=== PATIENT | male | born 1945 | race Caucasian/White ===

== ENCOUNTER 2017-03-22 14:46 | Inpatient (IN) | payer MEDICARE ==
[~2017-03-22] VITALS: Ht 180.3 cm; Wt 69.9 kg
[~2017-03-22 14:46] MED LIST: BIOTUSSIN PO; CHILD ASA LS81 MG PO; DIGOXIN0.125 MG PO; DILTIAZEM CD120 MG PO; DULERA1 AE1 IN; FINASTERIDE5 MG PO; K-DUR/KLOR-CON10 MEQ PO; LASIX 40 MG40 MG/TAB PO; LEVAQUIN750 MG PO; LISINOPRIL2.5 MG PO; LOPRESSOR 550 MG/TAB PO; PEG 3350 PO; PREDNISONE10 MG PO; PREDNISONE50 MG PO; PROAIR HFA IN; STOOL SOFTEN240 MG PO; SYMBICORT1 AE1 IN; TAMSULOSIN0.4 MG PO
[2017-03-22 15:00] VITALS: BP 90/50
[2017-03-22 15:53] LABS: HEMATOCRIT 47.3 % (39.0-50.0); HEMOGLOBIN 16.2 g/dl (14.0-18.0); IMMATURE GRANULOCYTES 0.3 % (0.0-1.0); MEAN CELL VOLUME 101.7 fL CALC (80.0-100.0); MEAN CORPUSCULAR HGB 34.8 pG CALC (26.0-32.0); MEAN CORPUSCULAR HGB CONC 34.2 g/L CALC (32.0-36.0); NEUT# 4.27 thou/uL (1.82-7.42); RED BLOOD COUNT 4.65 mill/uL (4.70-6.10); RED CELL DISTRI WIDTH 14.1 % (11.5-15.5)
[2017-03-22] MEDS ORDERED: CARVEDILOL3.125 MG PO (15:55)
[2017-03-22] MEDS ORDERED: ENTRESTO 24-261 TAB PO (15:57)
[2017-03-22] MEDS ORDERED: FUROSEMIDE40 MG PO (15:59)
[2017-03-22] MEDS ORDERED: TYLENOL 500MG TAB PO (16:08)
[2017-03-22 16:09] LABS: ALBUMIN 3.4 g/dL (3.2-5.0); ALKALINE PHOSPHATASE 77 u/l (38-126); ANION GAP 12 (6-22 (CALC)); BUN 21 mg/dL (8-23); BUN/CREATININE RATIO 30 (12-20 (CALC)); CARBON DIOXIDE 35 mmol/l (22-30); CHLORIDE 95 mmol/l (95-108); CREATININE 0.7 mg/dL (0.7-1.3); GFR > 60 ML/MIN (>=60 (CALC)); GFR FOR AFR.AMER. > 60 ML/MIN (>=60 (CALC)); GLUCOSE 101 mg/dL (82-115); POTASSIUM 4.3 mmol/l (3.5-5.1); SGOT/AST 14 u/l (19-48); SGPT/ALT 26 u/l (11-66); SODIUM 137 mmol/l (137-146); TOTAL PROTEIN 6.3 g/dL (6.3-8.2)
[2017-03-22 16:10] LABS: ACT PARTIAL THROMBO TIME 47.5 SECONDS (20.0-32.5); INTERNATIONAL NORMALIZED RATIO 2.2 RATIO (0.7-1.3); PROTHROMBIN TIME 25.7 SECONDS (9.0-12.5)
[2017-03-22 19:00] VITALS: BP 86/52
[2017-03-22 22:00] VITALS: BP 83/55
[2017-03-22 22:59] VITALS: BP 83/55
[2017-03-22 23:40] VITALS: BP 106/66
[2017-03-23] VITALS (13 sets, daily range): BP systolic 93–113; BP diastolic 57–68
[2017-03-23 04:10] LABS: HEMATOCRIT 42.1 % (39.0-50.0); HEMOGLOBIN 13.8 g/dl (14.0-18.0); IMMATURE GRANULOCYTES 0.2 % (0.0-1.0); MEAN CELL VOLUME 99.1 fL CALC (80.0-100.0); MEAN CORPUSCULAR HGB 32.5 pG CALC (26.0-32.0); MEAN CORPUSCULAR HGB CONC 32.8 g/L CALC (32.0-36.0); NEUT# 2.41 thou/uL (1.82-7.42); RED BLOOD COUNT 4.25 mill/uL (4.70-6.10); RED CELL DISTRI WIDTH 13.6 % (11.5-15.5)
[2017-03-23 04:28] LABS: INTERNATIONAL NORMALIZED RATIO 1.5 RATIO (0.7-1.3); PROTHROMBIN TIME 17.3 SECONDS (9.0-12.5)
[2017-03-23 05:00] LABS: ANION GAP 9 (6-22 (CALC)); BUN 15 mg/dL (8-23); BUN/CREATININE RATIO 26 (12-20 (CALC)); CALCIUM 8.8 mg/dL (8.4-10.2); CARBON DIOXIDE 35 mmol/l (22-30); CHLORIDE 97 mmol/l (95-108); CREATININE 0.6 mg/dL (0.7-1.3); GFR > 60 ML/MIN (>=60 (CALC)); GFR FOR AFR.AMER. > 60 ML/MIN (>=60 (CALC)); GLUCOSE 80 mg/dL (82-115); MAGNESIUM 1.9 mg/dL (1.6-2.3); POTASSIUM 4.3 mmol/l (3.5-5.1); SODIUM 137 mmol/l (137-146)
[2017-03-23 06:38] LABS: INTERNATIONAL NORMALIZED RATIO 1.6 RATIO (0.7-1.3); PROTHROMBIN TIME 18.1 SECONDS (9.0-12.5)
[2017-03-24 00:19] VITALS: BP 99/62
[2017-03-24 04:15] VITALS: BP 91/58
[2017-03-24 08:05] VITALS: BP 97/61
[2017-03-24 08:26] VITALS: BP 97/61
[2017-03-24] MEDS ORDERED: DIGOXIN0.125 MG PO (11:06)
[2017-03-24] MEDS ORDERED: ZITHROMAX250 MG PO (11:25)
[2017-03-24] MEDS ORDERED: IPRATROPIU0.5 MG/3 M IN (11:25)
[2017-03-24] MEDS ORDERED: PREDNISONE10 MG PO (11:25)
== END 2017-03-24 16:35 | disposition home or self-care (01) | DRG 813 ==
LOC: MS2 14:46
PROVIDERS: Nurse Practitioner Family; Surgery; ADMIT Internal Medicine; ATTEND Internal Medicine
PROC: 30233K1 Transfusion of Nonautologous Frozen Plasma into Peripheral Vein, Percutaneous Approach (ICD-10-PCS; principal; 2017-03-22)
PROC: 30233K1 Transfusion of Nonautologous Frozen Plasma into Peripheral Vein, Percutaneous Approach (ICD-10-PCS; 2017-03-23)
PROC: 0DBH8ZX Excision of Cecum, Via Natural or Artificial Opening Endoscopic, Diagnostic (ICD-10-PCS; 2017-03-23)
PROC: 0DBL8ZX Excision of Transverse Colon, Via Natural or Artificial Opening Endoscopic, Diagnostic (ICD-10-PCS; 2017-03-23)
DX: D68.2 Hereditary deficiency of other clotting factors (principal); J96.10 Chronic respiratory failure, unspecified whether with hypoxia or hypercapnia; I95.9 Hypotension, unspecified; I42.0 Dilated cardiomyopathy; I50.22 Chronic systolic (congestive) heart failure; J43.9 Emphysema, unspecified; Z99.81 Dependence on supplemental oxygen; D12.0 Benign neoplasm of cecum; D12.3 Benign neoplasm of transverse colon; I48.2 Chronic atrial fibrillation; R63.4 Abnormal weight loss; E11.9 Type 2 diabetes mellitus without complications; I25.10 Atherosclerotic heart disease of native coronary artery without angina pectoris; N40.0 Benign prostatic hyperplasia without lower urinary tract symptoms; R97.20 Elevated prostate specific antigen [PSA]; F17.210 Nicotine dependence, cigarettes, uncomplicated; D50.0 Iron deficiency anemia secondary to blood loss (chronic); Z79.51 Long term (current) use of inhaled steroids; Z86.010 Personal history of colon polyps

== ENCOUNTER 2018-03-06 11:00 | Emergency (ER) | payer MEDICARE ==
[~2018-03-06] VITALS: Ht 180.3 cm; Wt 70.0 kg
[~2018-03-06 11:00] MED LIST changes: +CARVEDILOL3.125 MG PO; +ENTRESTO 24-261 TAB PO; +FUROSEMIDE40 MG PO; +IPRATROPIU0.5 MG/3 M IN; +TYLENOL 500MG TAB PO; +ZITHROMAX250 MG PO
[2018-03-06 12:03] LABS: HEMATOCRIT 42.7 % (39.0-50.0); HEMOGLOBIN 15.4 g/dl (14.0-18.0); IMMATURE GRANULOCYTES 0.1 % (0.0-5.0); MEAN CELL VOLUME 108.7 fL CALC (80.0-100.0); MEAN CORPUSCULAR HGB 39.2 pG CALC (26.0-32.0); MEAN CORPUSCULAR HGB CONC 36.1 g/L CALC (32.0-36.0); NEUT# 4.96 thou/uL (1.82-7.42); RED BLOOD COUNT 3.93 mill/uL (4.70-6.10); RED CELL DISTRI WIDTH 15.6 % (11.5-15.5)
[2018-03-06 12:16] LABS: BUN 25 mg/dL (8-23); BUN/CREATININE RATIO 34 (12-20 (CALC)); CHLORIDE 94 mmol/l (95-108); CREATININE 0.7 mg/dL (0.7-1.3); GFR > 60 ML/MIN (>=60 (CALC)); GFR FOR AFR.AMER. > 60 ML/MIN (>=60 (CALC)); POTASSIUM 3.9 mmol/l (3.5-5.1); SODIUM 143 mmol/l (137-146)
[2018-03-06 12:25] LABS: ANION GAP 9 (6-22 (CALC))
[2018-03-06 12:30] LABS: CARBON DIOXIDE 44 mmol/l (22-30)
[2018-03-06] MEDS ORDERED: PREDNISONE50 MG PO (13:39)
[2018-03-06] MEDS ORDERED: AUGMENTIN875TAB PO (13:39)
[2018-03-06] MEDS ORDERED: ZPAK PO (13:39)
[2018-03-06 13:51] VITALS: BP 95/60
== END 2018-03-06 14:09 | disposition home or self-care (01) ==
LOC: ED 11:00
PROVIDERS: Family Medicine
DX: J44.1 Chronic obstructive pulmonary disease with (acute) exacerbation (principal); J18.9 Pneumonia, unspecified organism; J44.0 Chronic obstructive pulmonary disease with (acute) lower respiratory infection; D68.2 Hereditary deficiency of other clotting factors; F17.210 Nicotine dependence, cigarettes, uncomplicated

== ENCOUNTER 2018-03-08 10:46 | Inpatient (IN) | payer MEDICARE ==
[~2018-03-08] VITALS: Ht 180.3 cm; Wt 85.3 kg
[~2018-03-08 10:46] MED LIST changes: +AUGMENTIN875TAB PO; +ZPAK PO
--- NOTE | 2018-03-08 10:51 | NUR ---
PATIENT TO ROOM VIA WHEELCHAIR AND PHYSICIAN AT BEDSIDE FOR EVAL
--- NOTE | 2018-03-08 11:16 | NUR ---
NOTIFIED PATIENT OF BED BUGS THAT ARE CRAWLING OVER HIS BODY AND CLOTHING. PATIENT INFORMED HE IS BEING PLACED ON CONTACT PRECAUTIONS AND EXACTLY THAT THAT ENTAILS. PATIENT INFORMED HIS CLOTHING WOULD BE DOUBLE BAGGED AND HE WOULD BE BATHED AND LINEN WOULD BE CHANGED. RADIOLOGY, LAB, RESPIRATORY, ER DIRECTOR AND INFECTION CONTROLLED NOTIFIED. PATIENT VERBALLY ACKNOWLEDGES UNDERSTANDING OF INSTRUCTIONS.
--- NOTE | 2018-03-08 11:20 | NUR ---
PT DIAGNOISED WITH PNEUMONIA ON TUESDAY AND DID NOT STAY FOR ADMISSION. PT STATES BREATHING HAS GOTTEN WORSE AND HAS RETURNED TO ER. PT DENIES ANY C/P, N/V. PT HAS SOB AND WEAKNESS. PT IS AOX3- PT REASKS MANY QUESTIONS BUT UNDERSTANDS ONCE EXPLAINED.
--- NOTE | 2018-03-08 11:43 | NUR ---
PT CHANGED OUT OF CLOTHING, CLOTHING AND O2 CONCENTRATOR PLACED IN BELONGING BAG AND DOUBLE BAGED AND TIED. PT WASHED HEAD TO TOE WITH BATH SOAP. PT LINENS CHANGED AND PLACED IN LINEN BAG IN ROOM. PT GIVEN NEW GOWN AND BLANKET.
--- NOTE | 2018-03-08 11:50 | NUR ---
LITTLE spoke with charge nurse Zeenat regarding admission status after reviewing the chart. LITTLE advised JOSE and Bakari voiced agreement and stated he will inform the physician.
[2018-03-08 12:14] LABS: HEMOGLOBIN 14.2 g/dl (14.0-18.0); IMMATURE GRANULOCYTES 0.4 % (0.0-5.0); MEAN CELL VOLUME 107.9 fL CALC (80.0-100.0); MEAN CORPUSCULAR HGB 34.1 pG CALC (26.0-32.0); MEAN CORPUSCULAR HGB CONC 31.6 g/L CALC (32.0-36.0); NEUT# 8.55 thou/uL (1.82-7.42); RED BLOOD COUNT 4.17 mill/uL (4.70-6.10)
[2018-03-08] MEDS ORDERED: KLOR-CON 1010 MEQ PO (12:20)
[2018-03-08] MEDS ORDERED: SYMBICORT1 AE1 IN (12:20)
[2018-03-08] MEDS ORDERED: TAMSULOSIN HCL0.4 MG PO (12:21)
[2018-03-08] MEDS ORDERED: CARVEDILOL3.125 MG PO (12:21)
[2018-03-08] MEDS ORDERED: PREDNISONE10 MG PO (12:21)
[2018-03-08] MEDS ORDERED: FINASTERIDE5 MG PO (12:21)
[2018-03-08] MEDS ORDERED: LASIX 20 MG TAB20 MG PO (12:22)
[2018-03-08] MEDS ORDERED: DIGOXIN0.125 MG PO (12:22)
[2018-03-08] MEDS ORDERED: SPIRIVA HANDIHALER IN (12:23)
[2018-03-08] MEDS ORDERED: ZPAK PO (12:24)
[2018-03-08] MEDS ORDERED: AMOXICILLIN/CL875 MG PO (12:25)
--- NOTE | 2018-03-08 12:43 | NUR ---
PT RESTING ON STRETCHER, IV PATENT. NO COMPLAINTS STATED AT THIS TIME. FAMILY AT BEDSIDE.
[2018-03-08 12:59] LABS: ALKALINE PHOSPHATASE 44 u/l (38-126); ANION GAP 11 (6-22 (CALC)); BILIRUBIN, TOTAL 0.4 mg/dL (0.0-1.4); BUN 40 mg/dL (8-23); BUN/CREATININE RATIO 45 (12-20 (CALC)); CHLORIDE 93 mmol/l (95-108); CREATININE 0.9 mg/dL (0.7-1.3); GFR > 60 ML/MIN (>=60 (CALC)); GFR FOR AFR.AMER. > 60 ML/MIN (>=60 (CALC)); POTASSIUM 4.4 mmol/l (3.5-5.1); SGOT/AST 17 u/l (19-48); SODIUM 140 mmol/l (137-146); TOTAL PROTEIN 5.7 g/dL (6.3-8.2)
[2018-03-08 13:19] LABS: CARBON DIOXIDE 40 mmol/l (22-30)
--- NOTE | 2018-03-08 13:43 | NUR ---
PT ASLEEP ON STRETCHER, SATS DROPPED WHILE PT IS ASLEEP, SATS RETURNED TO BASELINE WHILE PT IS AWAKE, FAMILY AT BEDSIDE.
--- NOTE | 2018-03-08 14:13 | NUR ---
MD AT BEDSIDE TO DISCUSS ADMISSION
--- NOTE | 2018-03-08 14:49 | NUR ---
REPOR CALLED TO [facility] HARKINS- ACCEPTED PT
--- NOTE | 2018-03-08 15:00 | NUR ---
PT ARRIVED TO FLOOR VIA STRETCHER ACCOMPANIED GALI AKHTAR AND FRIEND;PT AMBULATED WITH A UNSTEADY GAIT TO STANDING SCALE AND BEDSIDE;WT AND VS OBTAINED BY PANCHITO SINGH;PT GUARDED,ORIENTED TO ROOM AND CALL LIGHT SYSTEM AND VERBALIZES UNDERSTANDING;ASSESSMENT COMPLETED;PT REPORTS SOB X1 WEEK;RESPIRATIONS LABORED ON 02 @ 3L VIA NC,PURSED LIP BREATHING TECHNIQUE EDUCATED AND PT VERBALIZES UNDERSTANDING;LUNGS SOUND COARSE;NON-PRODUCTIVE COUGH NOTED;ABDOMEN SOFT ON PALPATION AND ACTIVE IN ALL 4 QUADRANTS,LAST BM 03/06/18;STRONG PEDAL PULSES WITH +2 EDEMA,ENCOURAGED ELEVATION;PETECHIA NOTED THROUGHOUT BODY;IT SHOULD BE NOTED THAT FRIEND REPORTS "PT HOUSE IS FILLED WITH BEDBUGS AND ROACHES,PT IS UNABLE TO CARE FOR SELF";#20G TO LAC FLUSHED AND PATENT,SITE APPEARS HEALTHY AND FREE FROM EDEMA;PT MADE AWARE THE NEED FOR A UA SAMPLE AND PT VERBALIZES UNDERSTANDING;PT DENIES ANY ADDITIONAL NEEDS AT THIS TIME AND IS ENCOURAGED TO CALL FOR ASSISTANCE IF NEEDED;FALL PRECAUTIONS IN PLACE WITH CALL LIGHT IN REACH;WILL CONTINUE TO MONITOR
--- NOTE | 2018-03-08 15:15 | NUR ---
Admission Note Report Given to: CRUZ PATINO Transported by: Wheelchair X Stretcher Transported with: X Nurse Transporter X Patent IV X O2 Tuck Pointer Helper TRANSPORTED TO [facility] [place] WITHOUT INCIDENT
[2018-03-08 15:21] LABS: DIGOXIN 0.9 ng/mL (0.8-2.0)
--- NOTE | 2018-03-08 15:30 | NUR ---
JORDON GIBSON,ANRP AT BEDSIDE
[2018-03-08 15:41] VITALS: BP 103/65
--- NOTE | 2018-03-08 17:30 | NUR ---
RT AT BEDSIDE
[2018-03-08 20:00] VITALS: BP 101/72
--- NOTE | 2018-03-08 21:30 | NUR ---
PT MEDICATED ORDERS PROVIDE. HE WAS VERY DISCORIENTED UPON WAKING HIM UP WHEN I ENTERED THE ROOM. ONLY AWOKE TO MY TOUCH AND VOICE, THEN HE HAD TROUBLE REORIENTING SELF. HE WAS LOC TO SELF/ AND BEING IN THE HOSPITAL, BUT HE EXPRESSED CONFUSION OVER WHY HE WAS HERE, WHEN I EXPLAINED IT TO HIM HE REPLIED, "WELL I KNOW THAT." BUT HE CONTINUED TO SEEM SOMEWHAT CONFUSED AND AGITATED AT EACH THING THAT WE DISCUSSED. PT ASSESSED, NEURO'S INTACT, LUNG SOUNDS WERE CRACKLES/WHEEZE THROUGHOUT, SKIN HAS PETECHIAE APPEARANCE ALL ON UPPER TRUNK AND LOWER EXTREMETIES, ABD FIRM NON-TENDER, NON-PRODUCTION COUGH WHILE I WAS IN THE ROOM WITH PT. O2NC ON @3L PT SAT AT 90%, 83% ON RA. PT REORIENTED TO URINAL AND CALL LIGHT AND OBTAINING ASSISTANCE PRIOR TO GETTING UP BEFORE LEAVING THE ROOM. CALL LIGHT IS AT BEDSIDE.
--- NOTE | 2018-03-08 23:50 | NUR ---
PT MEDICATED W/IV ANTIBIOTIC THERAPY AND IV FLUIDS REPLENISHED AT THIS TIME ORDERED. NO S/S OF DISTRESS NOTED, PT WAS SLEEPING I ENTERED ROOM. WILL CONTINUE TO MONITOR. URINAL EMPTIED OF 300CC CLOUDY RAUL URINE. CALL LIGHT IS AT SIDE AND PT ENCOURAGED TO CALL IF ANY NEEDS ARISE.
[2018-03-09] VITALS (13 sets, daily range): BP systolic 92–114; BP diastolic 62–75
[2018-03-09 00:26] LABS: URINE BILIRUBIN - DIPSTICK NEGATIVE (NEGATIVE); URINE BLOOD DIPSTICK NEGATIVE (NEGATIVE); URINE COLOR YELLOW; URINE GLUCOSE - DIPSTICK NEGATIVE (NEGATIVE); URINE KETONE NEGATIVE (NEGATIVE); URINE LEUK ESTERASE NEGATIVE (NEGATIVE); URINE NITRITE - DIPSTICK NEGATIVE (Negative); URINE PROTEIN - DIPSTICK NEGATIVE (NEG-TRACE); URINE SPECIFIC GRAVITY >=1.030; URINE UROBILINOGEN - DIPSTICK 0.2 E.U./dL (0.2)
[2018-03-09 00:37] LABS: URINE CLARITY CLEAR
--- NOTE | 2018-03-09 03:00 | NUR ---
PT C/O SOB/DIFFICULTY GETTING BREATH, PT IS TALKING A LOT. V/S ASSESSED WHILE ASSISTING PT TO STOP TALKING AND SLOW BREATHING IN THROUGH NOSE AND OUT THROUGH MOUTH. RESPIRATORY CALLED. BP 100/62, HR 105 AND 86 FLUCTUATING AT THIS TIME, O2SAT 73 WHILE TALKING/ONCE PT WAS CALMED AND ASSISTED IN PROPER BREATHING TECHNIQUES O2SATS CLIMBED TO 92% W/O2 NC@3L. RESP IN ADMINISTERING DUONEB TREATMENT AT THIS TIME, WILL CONTINUE TO MONITOR CLOSELY. CALL LIGHT IN HAND
--- NOTE | 2018-03-09 04:45 | NUR ---
PT WAS SLEEPING SOUNDLY UPON ENTERING ROOM. NO S/S OF DISTRESS NOTED. V/S ARE BEING ASSESSED AT THIS TIME. CALL LIGHT W/IN REACH.
[2018-03-09 05:18] LABS: HEMATOCRIT 46.2 % (39.0-50.0); HEMOGLOBIN 15.2 g/dl (14.0-18.0); MEAN CELL VOLUME 108.2 fL CALC (80.0-100.0); MEAN CORPUSCULAR HGB 35.6 pG CALC (26.0-32.0); MEAN CORPUSCULAR HGB CONC 32.9 g/L CALC (32.0-36.0); RED BLOOD COUNT 4.27 mill/uL (4.70-6.10); RED CELL DISTRI WIDTH 14.9 % (11.5-15.5)
[2018-03-09 05:37] LABS: BUN 43 mg/dL (8-23); BUN/CREATININE RATIO 58 (12-20 (CALC)); CHLORIDE 96 mmol/l (95-108); CREATININE 0.7 mg/dL (0.7-1.3); GFR > 60 ML/MIN (>=60 (CALC)); GFR FOR AFR.AMER. > 60 ML/MIN (>=60 (CALC)); POTASSIUM 4.9 mmol/l (3.5-5.1); SODIUM 140 mmol/l (137-146)
[2018-03-09 05:43] LABS: ANION GAP 11 (6-22 (CALC)); CARBON DIOXIDE 38 mmol/l (22-30)
--- NOTE | 2018-03-09 06:09 | NUR ---
PT MEDICATED ORDERS PROVIDE W/IV ANTIBIOTICS ORDERED. PO FLUIDS PROVIDED AND PT ENCOURAGED TO CALL IF ANY NEEDS ARISE.
--- NOTE | 2018-03-09 07:16 | NUR ---
BEDSIDE REPORT RECEIVED BY EMILY. PT IS SLEEPING IN BED WITH NO S/S OF DISTRESS NOTED. CALL LIGHT IN REACH.
--- NOTE | 2018-03-09 08:06 | NUR ---
ASSESSMENT DONE. LUNGS SOUND COARSE. O2 AT 3L VIA NC. PT IS A&O X3 BUT STATED HE FEELS DROWSY. PT HAS NON-PRODUCTIVE COUGH. #20 LFA THAT APPEARS HEALTHY NS 50ML/HR INFUSING WELL. PT DENIES PAIN AT THIS TIME. SAFETY PRECAUTIONS REINFORCED AND CALL LIGHT IN REACH.
--- NOTE | 2018-03-09 10:15 | NUR ---
TRANFER PT TO ICU BED 1 VIA BED AND O2 AT 3L VIA NC IN PLACE. PER BENITA RICHEY. REPORT GIVEN TO GALI BARKER.
--- NOTE | 2018-03-09 10:15 | NUR ---
PT ARRIVED TO BED 1 ICU UNIT FORM MS. RECIEVED REPORT FROM GALI ALVAREZ.
--- NOTE | 2018-03-09 10:25 | NUR ---
PT A&0X3, ABLE TO MAKE NEEDS KNOWN. PT AFIB ON TELEMTRY, HR 92, B/P-114/74, RR-20, SA02@95%. PT PLACED ON BIPAP, RR-20, FIO2@40%. PT LS COARSE THROUGOUT, NON-PRODUCTIVE COUGH. ABDOMEN SOFT, NON-TENDER, BSX4 ACTIVE, PT STATES LAST BM 10-2-18. PT STATES CONTINENT OF B&B, HAS NOT VOIDED. PT HAS PETECHIAE TO BLE FROM BELOW KNEE DOWN TO ANKLES. PT DENIES CHEST PAIN OR DISTRESS AT THIS TIME. PT REMAINS ON FULL CONTACT PRECAUTIONS DUE TO VISUALIZED BED BUGS PER REPORT. BED IN LOWEST POSITION, CALL LIGHT IN REACH. WILL MONITOR.
--- NOTE | 2018-03-09 10:25 | NUR ---
PT A&0X3, ABLE TO MAKE NEEDS KNOWN. PT SR ON TELEMTRY, HR 92, B/P-114/74, RR-20, SA02@95%. PT PLACED ON BIPAP, RR-20, FIO2@40%. PT LS COARSE THROUGOUT, NON-PRODUCTIVE COUGH. ABDOMEN SOFT, NON-TENDER, BSX4 ACTIVE, PT STATES LAST BM 10-2-18. PT STATES CONTINENT OF B&B, HAS NOT VOIDED. PT HAS PETECHIAE TO BLE FROM BELOW KNEE DOWN TO ANKLES. PT DENIES CHEST PAIN OR DISTRESS AT THIS TIME. PT REMAINS ON FULL CONTACT PRECAUTIONS DUE TO VISUALIZED BED BUGS PER REPORT. BED IN LOWEST POSITION, CALL LIGHT IN REACH. WILL MONITOR.
--- NOTE | 2018-03-09 12:08 | NUR ---
PT RESTING IN BED WITH EYES CLOSED, PT CONTINUES ON BIPAP, 20G TO LFA INFUSING NS@150ML/HR, NO S/S OF INFILTRATION AT SITE. PT CONTINUES AFIB ON TELEMETRY, HR 96. NO DISTRESS NOTED AT THIS TIME.
--- NOTE | 2018-03-09 13:34 | NUR ---
RT AT BEDSIDE. PER RT INCREASED RR-24, FI02@40%.
--- NOTE | 2018-03-09 14:35 | NUR ---
PT BECAME IRATE AND DEMANDING, PT STATED HE HAD NOT SEEN A DR. I INFORMED PT THAT DR. NAVARRO AND JORDON JOY WERE AT BEDSIDE SHORTLY AFTER ARRIVAL TO THIS FLOOR. PT STATED I WAS A LIAR AND THAT IF DR. NAVARRO DID NOT COME SEE HIM BY 3PM HE WAS GOING TO TAKE EVERYTHING OFF AND LEAVE, PT EDUCATED ON THE RISKS, THAT HIS CONDITION WITHOUT MEDICAL CARE COULD BE FATAL. I NOTIFIED BENITA RUVALCABA OF PT COMPLAINTS, BENITA RUVALCABA ALSO STATED THAT PT WAS SEEN 2X TODAY BY DR. NAVARRO AND HER 1X ON MS UNIT AND 1X IN ICU, DR. NAVARRO WAS AT BEDSIDE FOR ASSESSMENT AND TO DISCUSS PLAN OF CARE. PT SETTLED DOWN AFTER DETAILED EXPLAINATION OF CARE AND TX PLAN. PT RESTING IN BED WITH BIPAP IN PLACE.
--- NOTE | 2018-03-09 15:10 | NUR ---
LITTLE ACEVES AT BEDSIDE. PT BECAME DEMANDING WITH HIM, VOICING SAME COMPLAINTS, PT REORIENTED AND REDIRECTED. WILL CONTINUE TO MONITOR.
--- NOTE | 2018-03-09 15:30 | NUR ---
RT AT BEDSIDE FOR ASSESSMENT AND CARE.
--- NOTE | 2018-03-09 15:48 | NUR ---
The patient was transferred to ICU and placed no bipap. We will hold off on PT eval for now and await MD to reorder
--- NOTE | 2018-03-09 17:30 | NUR ---
DEVIKA, AT BEDSIDE FOR TREATMENT, PER BENITA RUVALCABA AFTER NOTIFIED WITH ABG RESULTS, PT TO REMAIN ON BIPAP, REPEAT ABG IN AM.
--- NOTE | 2018-03-09 17:59 | NUR ---
BIPAP STANDBY FOR DINNER. PLACED ON 2L NC
--- NOTE | 2018-03-09 18:28 | NUR ---
pt sitting in bed talking on phone. pt offers no complaints at this time. call light in reach, will monitor.
--- NOTE | 2018-03-09 19:00 | NUR ---
PT RESTING IN BED WATCHING TV. PT IS ALERT AND ORIENTED X3. SHIFT ASSESSMENT COMPLETED AT THIS TIME. IV PATENT X1. PLAN OF CARE REIVEWED [facility] PATIENT. PT VERBALIZED UNDERSTANDING. PT PLACED BACK ON BIPAP. CALL LIGHT IN REACH. WILL CONTINUE TO MONITOR
--- NOTE | 2018-03-09 21:03 | NUR ---
evening meds passed per mar. sleeping med given per pt request.
[2018-03-10] VITALS (20 sets, daily range): BP systolic 92–116; BP diastolic 57–77
--- NOTE | 2018-03-10 | NUR ---
PT RESTING IN BED WITH EYES CLOSED. RESP ARE EVEN AND UNLABORED. NO DISTRESS NOTED. REMAINS ON BIPAP. REMAINS AFIB ON MONITOR. CALL LIGHT IN REACH. WILL CONTINUE TO MONITOR
--- NOTE | 2018-03-10 01:41 | NUR ---
PT RESTING IN BED WITH EYES CLOSED. RESP ARE EVEN AND UNLABORED. NO DISTRESS NOTED. PT REMAINS ON BIPAP. CALL LIGHT IN REACH. WILL CONTINUE TO MONITOR.
--- NOTE | 2018-03-10 03:54 | NUR ---
pt resting in bed with wyws closed. resp are even and unlabored. bipap remains in place. pt remains in afib on monitor. call light in reach. will continue to monitor.
--- NOTE | 2018-03-10 05:49 | NUR ---
RADIOLOGY IN FOR PORTABLE CXR. RT IN FOR AM ABG. LAB IN FOR AM LABS. CALL LIGHT IN REACH. WILL CONTINUE TO MONITOR
[2018-03-10 06:24] LABS: HEMATOCRIT 44.8 % (39.0-50.0); HEMOGLOBIN 14.8 g/dl (14.0-18.0); MEAN CELL VOLUME 110.6 fL CALC (80.0-100.0); MEAN CORPUSCULAR HGB 36.5 pG CALC (26.0-32.0); RED BLOOD COUNT 4.05 mill/uL (4.70-6.10); RED CELL DISTRI WIDTH 16.4 % (11.5-15.5)
[2018-03-10 07:07] LABS: BUN 39 mg/dL (8-23); BUN/CREATININE RATIO 55 (12-20 (CALC)); CHLORIDE 99 mmol/l (95-108); CREATININE 0.7 mg/dL (0.7-1.3); GFR > 60 ML/MIN (>=60 (CALC)); GFR FOR AFR.AMER. > 60 ML/MIN (>=60 (CALC)); SODIUM 139 mmol/l (137-146)
[2018-03-10 07:18] LABS: ANION GAP 5 (6-22 (CALC)); CARBON DIOXIDE 41 mmol/l (22-30); POTASSIUM 5.7 mmol/l (3.5-5.1)
--- NOTE | 2018-03-10 07:40 | NUR ---
PT LAYING IN BED WITH HOB ELEVATED, BIPAP IN PLACE, RESP EVEN AND UNLABORED; LUNGS ARE COARSE; PUPILS REACTIVE TO LIGHT; MOIST LOOSE PRODUCTIVE COUGH; REMAINS AFIB ON TELE; RADIAL & PEDAL PULSES FELT; ABD FIRM NON TENDER, BOWELS SOUNDS HYPOACTIVE; PETCHIA BILAT LOWER EXTREMITIES; TRACE OF EDEMA ON L ANKLE; #20 LFA, NIS @150, INFUSING WITHOUT DIFFICULTY, NO EDEMA OR REDNESS NOTED ON SITE. SET UP PT WITH BREAKFAST, BIPAB REMOVED, ADMINISTER 02@2L; BED IN LOW LOCKED POSITION; CALL LIGHT AND URINAL IN REACH. WILL CONTINUE TO MONITOR.
--- NOTE | 2018-03-10 07:50 | NUR ---
DAVID (EMERGENCY CONTACT) [phone], CALLED TO SEE HOW PT'S DOING AND WHY SHE WAS NOT CONTACTED THAT HE'S IN ICU; ALSO WANTS TO KNOW WHO HIS PULP BEATER IS. TOLD HER PT WAS A/O WHEN HE WAS TRNSFERED TO ICU, PT DID NOT ASK TO NOTIFY ANYONE OF HIS TRANSFER; TOLD HER PT EATING BREAKFAST AND DOING OK.
--- NOTE | 2018-03-10 08:40 | NUR ---
DR JUAREZ AND BENITA RUVALCABA AT BEDSIDE TO DISCUSS POC.
--- NOTE | 2018-03-10 09:05 | NUR ---
S: GIOVANA ANGELA is a 72 M who presents with SOB. He has a history of COPD. All medications in patient's chart were reviewed. O: VS: BP 101/70, P96, RR 22 W 71.8 kg, HT 71, Scr= 1,CrCl= 66.9 ml/min A: Blood culture shows no growth after incubation for 5 days. P: Patient is on Zosyn 3.375 gm IV Q6H. Vancomycin ordered for pharmacy to dose. Start Vancomycin 750 mg IV Q12H. Vancomycin trough is drawn before the 4th dose on 03/11/2018 at 2030. Vancomycin goal trough is between 10-20 mcg/ml. Pharmacy will follow and or advise on antibiotics use as needed.
--- NOTE | 2018-03-10 10:00 | NUR ---
PT LAYING IN BED WITH HOB ELEVATED, EYES CLOSED, RESP EVEN & UNLABORED, BREATING THRU NOSTRILS, NC 02,2L IN PLACE; IV INFUSING; PT REMAIN ON CONTACT PRECAUTION FOR BED BUGS & ROACHES; WILL CONTINUE.
--- NOTE | 2018-03-10 11:51 | NUR ---
PT SITTING UP ON EDGE OF BED EATING LUNCH, NC @2L IN PLACE; PT VOICED NO CONCERNS; WILL CONTINUE TO MONITOR.
--- NOTE | 2018-03-10 13:55 | NUR ---
PT RESTING IN BED WITH EYES CLOSED, NO DISTRESS NOTED, IV INFUSING WELL, NS @150ML/HR; CALL LIGHT AND URINAL IN REACH; WILL CONTIUE TO MONITOR.
--- NOTE | 2018-03-10 15:59 | NUR ---
PT LAYING IN BED WITH EYES CLOSED, NO SS OF DISTRESS NOTED, RESP EVEN & UNLABORED; IV PATENT NS INFUSING 100ML/HR; BED IN LOW, LOCKED POSITION; URINAL AND CALL MIRAMONTES IN REACH. WILL CONTINUE TO MONITOR.
--- NOTE | 2018-03-10 17:48 | NUR ---
PT UP TO BSC, HAD LG, FIRMED BM; ASSISTED BACK TO EDGE OF BED PER HIS REQUEST TO EAT SUPPER. RESP LABORED, PT WAS INFORED TO LET US KNOW IF HE NEEDS TO BE BACK ON BIPAP, PT VEBALIZED UNDERSTANDING; MEDICATED WITH ZOSYN; NO COMPLAINS OF PAIN; REMAIN AFIB; BED IN LOW LOCKED POSTION, WILL CONTINUE TO MONITOR.
--- NOTE | 2018-03-10 19:00 | NUR ---
PT SITTING UP IN BED WATCHING TV. PT IS ALERT AND ORIENTED X3. SHIFT ASSESSMENT COMPLETED AT THIS TIME. IV PATENT X1. PLAN OF CARE REVIEWED WITH PATIENT. PT VERBALIZED UNDERSTANDING. CALL LIGHT IN REACH. WILL CONTINUE TO MONITOR.
--- NOTE | 2018-03-10 21:00 | NUR ---
MEDICATED PT WITH PM MEDS. PT REPOSITIONED IN BED. OFFERRED BIPAP AT THIS TIME. PT REQUESTED TO WAIT. CALL LIGHT IN REACH. WILL CONTINUE TO MONITOR.
--- NOTE | 2018-03-10 22:00 | NUR ---
RT INTO PLACE PT BACK ON BIPAP FOR THE NIGHT. PT RESTING IN BED WATCHING MOVIE. CALL LIGHT IN REACH. WILL CONTINUE TO MONITOR.
--- NOTE | 2018-03-10 23:57 | NUR ---
pt resting in bed with eyes closed. pt on bipap. resp are even and unlabored. no distress noted. call light in reach. will continue to monitor.
[2018-03-11] VITALS (18 sets, daily range): BP systolic 94–121; BP diastolic 56–79
--- NOTE | 2018-03-11 01:55 | NUR ---
pt resting in bed with eyes closed. resp are even and unlabored. no distress noted. call light in reach. will continue to monitor.
--- NOTE | 2018-03-11 03:55 | NUR ---
pt resting in bed with eyes closed. bipap in place. pt remains in afib on monitor. resp are even and unlabored. no distress noted. call light in reach. will continue to monitor.
--- NOTE | 2018-03-11 05:16 | NUR ---
lab into draw am labs. bladder scanned pt due to no void throughout night. 406 in bladder. pt assisted to bsc for bm. call light in reach. will continue to monitor.
[2018-03-11 05:20] LABS: HEMATOCRIT 46.8 % (39.0-50.0); HEMOGLOBIN 14.6 g/dl (14.0-18.0); MEAN CELL VOLUME 105.6 fL CALC (80.0-100.0); MEAN CORPUSCULAR HGB CONC 31.2 g/L CALC (32.0-36.0); RED BLOOD COUNT 4.43 mill/uL (4.70-6.10); RED CELL DISTRI WIDTH 14.2 % (11.5-15.5)
--- NOTE | 2018-03-11 05:31 | NUR ---
pt voided 325cc of dark colred urine. no bm at this time. pt assisted from bsc to recliner. pt encouraged to stay witing up most of the day and to cough and deep breathe. pt verbalized understanding. call light in reach. will continue to monitor.
[2018-03-11 05:43] LABS: ANION GAP 3 (6-22 (CALC)); BUN 32 mg/dL (8-23); BUN/CREATININE RATIO 52 (12-20 (CALC)); CARBON DIOXIDE 39 mmol/l (22-30); CHLORIDE 101 mmol/l (95-108); CREATININE 0.6 mg/dL (0.7-1.3); GFR > 60 ML/MIN (>=60 (CALC)); GFR FOR AFR.AMER. > 60 ML/MIN (>=60 (CALC)); SODIUM 138 mmol/l (137-146)
[2018-03-11 06:01] LABS: POTASSIUM 4.7 mmol/l (3.5-5.1)
--- NOTE | 2018-03-11 07:45 | NUR ---
PT RESTING QUIETLY IN THE CHAIR. NO DISTRESS NOTED. ASSESMENT COMPLETED AT THIS TIME (SEE INTERVENTION) LUNG SOUNDS COURSE BILATERALLY. WET NONPRODUCTIVE COUGH NOTED. HEART SOUNDS IRREGUALAR TELEMETRY READING 86. BOWEL SOUNDS ACTIVE. PLAN OF CARE FOR THE DAY EXPLAINED, PT VERBALIZES UNDERSTANDING. PT SET UP FOR BREAKFAST. CALL MIRAMONTES IN REACH WILL CONTINUE TO MONITOR.
--- NOTE | 2018-03-11 09:00 | NUR ---
PT MEDICATED PER ORDER. VOICING NO COMPLAINTS. SAMANTHA SCHERERA IN TO BATHE PT. #20 IN THE LFA INSFUSING WELL FREE FROM REDNESS OR EDEMA.
--- NOTE | 2018-03-11 10:15 | NUR ---
NEURO CHECKS CHANGED TO Q SHIFT PER VERBAL ORDER .
--- NOTE | 2018-03-11 11:00 | NUR ---
PT RESTING QUIETLY IN CHAIR. WISHES NOT TO BE DISTURBED. WOULD LIKE TO SLEEP. IV INFUSING WELL.NO REDNESS OR EDEMA. WILL CONTINUE TO MONITOR. CALL MIRAMONTES IN REACH
--- NOTE | 2018-03-11 12:51 | NUR ---
PT HAS 13 BEAT RUN OF VTACH. PT ASYMPTOMATIC. JORDON JOY NOTIFIED. VS OBTAINED 99/63 HR 90. PT RETURNS TO RESTING QUIETLY. WILL CONTINUE TO MONITOR.
--- NOTE | 2018-03-11 15:00 | NUR ---
PT CONTINUES TO REST IN CHAIR. VOICES HE MAY HAVE A BOWEL MOVEMENT SOON. VISITOR AT BEDSIDE. PT VOICING NO NEW COMPLAINTS WILL CONTINUE TO MONITOR.
--- NOTE | 2018-03-11 17:00 | NUR ---
CONTIUES TO STAY IN CHAIR. PT HAS VISITOR AT BEDSIDE. PLEASEANT. NO REQUESTS AT THIS TIME. IV SITE FREE FROM REDNESS OR EDEMA.
--- NOTE | 2018-03-11 18:00 | NUR ---
PT SITTING IN CHAIR WATCHING BASEBALL. FINISHED WITH SUPPER. IV MEDS HUNG PER ORDER. PT INQUIRING ABOUT WHEN HE WOULD GET HIS NIGHT MEDS. VOICING NO COMPLAINTS.
--- NOTE | 2018-03-11 18:30 | NUR ---
REPORT FROM Rufina BHARDWAJ LPN. ASSUMED PT. CARE.
--- NOTE | 2018-03-11 19:30 | NUR ---
PT. FOUND AWAKE, ALERT, ORIENTED X 3. SKIN WARM AND DRY. AFEBRILE. PT. WITH MERCER AND SHALLOW RAPID RESPS. APPROX 36 RPM AT THIS TIME. DIMINISHED TO RT. UPPER. COARSE THROUGHOUT. SPO2 IS 92% ON 2L VIA NC. NO SPUTUM PRODUCTION REPORTED BY PT. 2+ LOWER EXT EDEMA NOTED. SCABBED AREAS NOTED TO BILAT LOWER EXT. [place]. [place]. PULSES INTACT THROUGHOUT. PT. DENIES COMPLAINTS OF PAIN OR NEED AT THIS TIME. WATER REFRESHED. IV FLUIDS INFUSING AT KVO 20 CC/HR. PT. UPDATED ON PLAN OF CARE FOR THE EVENING. WILL CONTINUE TO CLOSELY MONITOR.
--- NOTE | 2018-03-11 20:30 | NUR ---
LAB AT BEDSIDE AT THIS TIME TO DRAW [facility]. PT. REMAINS AWAKE, ALERT, ORIENTED, IN NO DISTRESS. CALL LIGHT REMAINS WITHIN REACH. WATCHING TELEVISION AT THIS TIME. RESPS REMAIN EVEN, SHALLOW. PT. SPEAKING IN FULL SENTENCES.
--- NOTE | 2018-03-11 22:00 | NUR ---
IV VANCO INFUSING WITHOUT SX OF INFILTRATION OR REACTION. VSS. SPO2 BETWEEN 88-94% ON 2L NC. PT. UPDATED ON PLAN OF CARE. DENIES OTHER COMPLAINTS OR NEEDS AT THIS TIME.
--- NOTE | 2018-03-11 23:35 | NUR ---
VANCO INFUSED. ZOSYN STARTED AT THIS TIME. PT. REMAINS AWAKE, ALERT, ORIENTED, CONVERSANT WITHOUT SOB SPEAKING FULL SENTENCES. VSS. DENIES COMPLAINTS OF PAIN AT THIS TIME. MEDICATED WITH SLEEPING PILL PER PATIENT REQUEST. WILL CONTINUE TO MONITOR.
[2018-03-12] VITALS (17 sets, daily range): BP systolic 101–123; BP diastolic 63–77
--- NOTE | 2018-03-12 00:15 | NUR ---
ZOSYN INFUSED. NO REACTIONS NOTED. CALL LIGHT REMAINS WITHIN REACH. LIGHTS OFF, RESTING IN NO DISTRESS. RESPS REMAIN UNLABORED. WILL CONTINUE TO ASSESS.
--- NOTE | 2018-03-12 02:14 | NUR ---
PT. RESTING IN BED WITH EYES CLOSED AND EVEN, UNLABORED, TACHYPENIC, SHALLOW RESPS. INTERMITTENT MOIST COUGH NOTED. PT. REMAINS IN A-FIB WITH RATE IN THE 70-80'S. VOICES NO COMPLAINTS OR NEEDS. FLUIDS INFUSING AT KVO. WILL CONTINUE TO MONITOR.
--- NOTE | 2018-03-12 03:30 | NUR ---
PT. AWAKENS WITH COUGHING AND SNEEZING EPISODE. UP TO SIDE OF BED TO URINATE. APPROXIMATELY 300 CC RAUL URINE. ENCOURAGED TO TAKE DEEP BREATHS AT THIS TIME SPO2 HAS DROPPED INTO THE MID 70'S AFTER COUGHING AND SNEEZING EPISODES. PT. SOMEWHAT TACHYPNIC. WILL CONTINUE TO ASSESS.
--- NOTE | 2018-03-12 05:08 | NUR ---
LAB AT BEDSIDE AT THIS TIME TO DRAW PT. PT. REMAINS IN A-FIB WITH RATE IN THE 70-80'S. PT. DENIES COMPLAINTS OF PAIN OR NEED AT THIS TIME. WILL CONTINUE TO ASSESS.
[2018-03-12 05:22] LABS: HEMATOCRIT 47.6 % (39.0-50.0); HEMOGLOBIN 14.7 g/dl (14.0-18.0); MEAN CELL VOLUME 101.9 fL CALC (80.0-100.0); MEAN CORPUSCULAR HGB 31.5 pG CALC (26.0-32.0); MEAN CORPUSCULAR HGB CONC 30.9 g/L CALC (32.0-36.0); RED BLOOD COUNT 4.67 mill/uL (4.70-6.10); RED CELL DISTRI WIDTH 14.1 % (11.5-15.5)
[2018-03-12 05:46] LABS: ANION GAP 3 (6-22 (CALC)); BUN 31 mg/dL (8-23); BUN/CREATININE RATIO 55 (12-20 (CALC)); CARBON DIOXIDE 39 mmol/l (22-30); CHLORIDE 101 mmol/l (95-108); CREATININE 0.6 mg/dL (0.7-1.3); GFR > 60 ML/MIN (>=60 (CALC)); GFR FOR AFR.AMER. > 60 ML/MIN (>=60 (CALC)); POTASSIUM 4.4 mmol/l (3.5-5.1); SODIUM 139 mmol/l (137-146)
--- NOTE | 2018-03-12 06:05 | NUR ---
NEB TREATMENT COMPLETE AT THIS TIME. PT. TOLERATED WELL. IV ZOSYN INFUSING AT THIS TIME. MEDICATED WITH SOLUMEDROL ORDERED. PT. DENIES COMPLAINTS OF PAIN OR NEED. CALL LIGHT REMAINS WITHIN REACH. NO RESP DISTRESS NOTED. WILL CONTINUE TO MONITOR.
--- NOTE | 2018-03-12 07:08 | NUR ---
RECVD REPORT FROM GALI HENDERSON AT START OF SHIFT. PT APPEARS TO BE SLEEPING AT THIS TIME.
--- NOTE | 2018-03-12 07:53 | NUR ---
BREAKFAST GIVEN TO PT, ALONG WITH FRESH ICE WATER & APPLE JUICE. PT FREINDLY, CONVERSIVE. A&Ox3. BREATHING IS LABORED/EVEN, CRACKLES IN ALL LOBES BILATERALLY. RADIAL PULSES STRONG, PEDAL PULSES WEAK. EDEMA +2/3 BILATERALLY. ABD SOFT/NONTENDER, ACTIVE BS. SPEECH CLEAR. PT DENIES PAIN. DENIES N/V/D. PT ABLE TO REPOSITION SELF. SITTING ON SIDE OF BED EATING BREAKFAST. PT IS AFIB/PVC ON TELE. PT NOT PLACED ON BIPAP LAST NIGHT. FREQUENT WET COUGH. ON 2L O2 NC. PT DENIES ABNORMALITY WITH URINATION. NO NEURO ABNORMALITY.
--- NOTE | 2018-03-12 08:50 | NUR ---
Vancomycin single level analysis: Current dose being given: 750 mg Current dosing interval: 12 hrs Current infusion time (hrs): 2 Single level Trough Data: Trough level obtained: 7 mcg/ml Desired trough: 15-20 mcg/ml Recommendations: Give Vancomycin 1250 mg q 12 hrs. Infuse over 2 hrs NEXT TROUGH WILL BE 03/13/18 @2029 Thank you for the consult, will continue to follow. Signature: MICH WANG, PHARMD
--- NOTE | 2018-03-12 09:30 | NUR ---
CALVIN, CASE MANAGEMENT, @BEDSIDE DISCUSSING POC FOR DC PER PT REQUEST.
--- NOTE | 2018-03-12 09:47 | NUR ---
RT @ BEDSIDE WITH PT FOR BREATHING TREATMENT
--- NOTE | 2018-03-12 09:50 | NUR ---
BENITA RUVALCABA, @BEDSIDE WITH PT, ASSESSING PT & DISCUSSING TEST RESULTS.
--- NOTE | 2018-03-12 10:02 | NUR ---
DR TERAN @BEDSIDE WITH PT, ASSESSING PT & DISCUSSING POC/DC.
--- NOTE | 2018-03-12 11:10 | NUR ---
ABX COMPLETED. PT SLEEPING. NO S/S OF DISTRESS. O2 81% ON 2L NC
--- NOTE | 2018-03-12 11:39 | NUR ---
PTS 02 DROPPED TO 73% ON 2L NC WHILE SLEEPING. RT CALLED TO ROOM. PT ASSISTED UP TO RECLINER WITH MODERATE ASSIST. PT TACYPNIC AT 60 RR. RT ENCOURAGING SLOW, DEEP BREATHING. LUNCH TRAY GIVEN TO PT. CAFETERIA CALLED TO REPLACE COFFEE ORDER WITH SWEET TEA PER PTS REQUEST.
--- NOTE | 2018-03-12 12:02 | NUR ---
PT REORIENTED TO ROOM & POC. EDUCATED ON IV ABX & BUMEX.
--- NOTE | 2018-03-12 12:53 | NUR ---
PT ARGUING WITH STAFF. DOES NOT LIKE TO SIT UP IN RECLINER BC "HE'S NOT COMFORTABLE"; WANTS TO GET BACK IN BED. EXPLAINED TO PT THAT HE IS STILL BREATHING TO FAST WITH LOW PULSE OX READING AND NEEDS TO REMAIN UPRIGHT IN CHAIR. RT CALLED. ANSWERED PTS REQUESTS FOR A BLANKET ON TOP OF & BEHIND PTS LEGS, PLACED BSC CLOSER TO CHAIR, PLACED URINAL ON TABLE IN FRONT OF PT, CALLBELL STILL W/IN REACH, "WIRE" PLACED IN A PILE ON PTS LAP.
--- NOTE | 2018-03-12 13:06 | NUR ---
RT @BEDSIDE FOR BREATHING TREATMENT.
--- NOTE | 2018-03-12 14:27 | NUR ---
JORDON, MANAGEMENT LECTURER NOTIFIED OF PTS DECLINED HEALTH. PT OBSERVED WITH INCREASED LABORED BREATHING AND RATTLING COUGH WHILE SITTING UPRIGHT IN RECLINER, DIFFICULT BREATHING WHILE COMMUNICATING; SUDDEN WORSENING BREATHING. MANAGEMENT LECTURER @BEDSIDE ASSESSING PT. PLACED NEW STAT ORDERS. RT CALLED BY [facility] . PT ASSISTED BACK TO BED, HIGH FOWLERS POSITION, AFTER WEIGHT OBTAINED. PT UNSTEADY.
--- NOTE | 2018-03-12 14:45 | NUR ---
EKG COMPLETED. ABG COMPLETED. PT REMAINS ON 2L NC. PROPER BREATHING TECHNIQUES MIRRORED BY RT.
--- NOTE | 2018-03-12 15:00 | NUR ---
#16 CATH BARNES INSERTED WITH NO RESISITANCE, PT TOLERATED PROCEDURE WELL. 100CC FLUSH PLACED IN BALLOON. 500ML LIGHT YELLOW URINE OUTPUT IMMEDIATELY. SWELLING TO AROUND HEAD OF PENIS PRIOR TO INSERTION.
--- NOTE | 2018-03-12 15:14 | NUR ---
PTS BREATHING RETURNING TO NORMAL FOR PT.
--- NOTE | 2018-03-12 16:12 | NUR ---
PT RESTING IN BED, BREATHING MILDLY LABORED. NO S/S OF DISTRESS. WILL CONTINUE TO MONITOR. 85% ON 2L NC
--- NOTE | 2018-03-12 17:04 | NUR ---
RT @BEDSIDE FOR BREATHING TREATMENT.
--- NOTE | 2018-03-12 17:54 | NUR ---
DIETARY @BEDSIDE TAKING PTS MEAL PREFERENCES FOR TOMORROW.
--- NOTE | 2018-03-12 20:45 | NUR ---
NRB TREATMENT WITH MUCOMYST IN PROGRESS AT THIS TIME. PT. REMAINS WITH DEEP MOIST COUGH AND UNABLE TO BRING UP SPUTUM.
--- NOTE | 2018-03-12 21:06 | NUR ---
CHEST PT BEING PERFORMED AT THIS TIME PER DR. TERAN'S ORDERS. WILL ASSESS FOR SPUTUM PRODUCTION WHEN COMPLETE.
--- NOTE | 2018-03-12 22:15 | NUR ---
IV VANCO INFUSING AT THIS TIME. NO REACTIONS NOTED. PT. REMAINS STABLE. RESTING WITH EYES CLOSED. INTERMITTENTLY AWAKENS. EASILY AROUSABLE. SKIN REMAINS WARM AND DRY. NO DISTRESS
--- NOTE | 2018-03-12 23:35 | NUR ---
VANCO INFUSED. NO REACTIONS NOTED. ZOSYN INITIATED AT THIS TIME. PT. REMAINS IN A-FIB, RATE CONTROLLED. SPO2 SOMEWHAT LOW AT THIS TIME. PT. IS MOUTH BREATHING. NASAL CANNULA INCREASED TO 2.5L/MIN. WILL CONTINUE TO CLOSELY OBSERVE.
[2018-03-13] VITALS (14 sets, daily range): BP systolic 95–126; BP diastolic 56–77
--- NOTE | 2018-03-13 00:10 | NUR ---
PT. RESTING IN BED WITH EYES CLOSED. ZOSYN INFUSED AT THIS TIME. NO REACTIONS NOTED. PT. SPO2 IS SLIGHTLY DECREASED TO THE LOW/MID 80'S. HR AND RESP RATE REMAIN NORMAL. PT. WITH INTERMITTENT TALKING IN HIS SLEEP. MOUTH BREATING AT THIS TIME.
--- NOTE | 2018-03-13 01:45 | NUR ---
PT. PLACED ON VENTIMASK AT 28% AT THIS TIME HIS SPO2 CONTINUES TO BE IN THE 70'S PT. IS MOUTH BREATHING AT THIS TIME. WILL CONTINUE TO ASSESS FOR IMPROVEMENT.
--- NOTE | 2018-03-13 03:11 | NUR ---
SPO2 IS HOLDING IN THE 88-90% RANGE ON THE 28% VENTI MASK. WILL CONTINUE AT THIS TIME. PT. RESTING WITH EYES CLOSED IN NO DISTRESS. CALL LIGHT REMAINS WITHIN REACH.
--- NOTE | 2018-03-13 05:04 | NUR ---
PT. CONTINUES TO REST IN BED WITH EYES CLOSED AN IN NO DISTRESS. SPO2 REMAINS STABLE IN THE 88-90% RANGE ON 28% VENTI MASK. IV FLUIDS CONTINUE AT KVO. PT. DENIES COMPLAINTS OF PAIN OR NEED AT THIS TIME. WILL CONTINUE TO MONITOR.
[2018-03-13 05:31] LABS: HEMATOCRIT 45.8 % (39.0-50.0); MEAN CELL VOLUME 103.9 fL CALC (80.0-100.0); MEAN CORPUSCULAR HGB CONC 32.8 g/L CALC (32.0-36.0); RED BLOOD COUNT 4.41 mill/uL (4.70-6.10); RED CELL DISTRI WIDTH 14.6 % (11.5-15.5)
[2018-03-13 05:50] LABS: ANION GAP 4 (6-22 (CALC)); BUN 31 mg/dL (8-23); BUN/CREATININE RATIO 53 (12-20 (CALC)); CARBON DIOXIDE 39 mmol/l (22-30); CHLORIDE 98 mmol/l (95-108); CREATININE 0.6 mg/dL (0.7-1.3); GFR > 60 ML/MIN (>=60 (CALC)); GFR FOR AFR.AMER. > 60 ML/MIN (>=60 (CALC)); POTASSIUM 4.7 mmol/l (3.5-5.1); SODIUM 137 mmol/l (137-146)
--- NOTE | 2018-03-13 05:54 | NUR ---
MEB TREATMENT COMPLETE AT THIS TIME. RT AT BEDSIDE TO PERFORM CHEST PT. IV ZOSYN INFUSING WITHOUT SIGNS OF REACTIONS. SPO2 REMAINS STABLE. PT. REMAINS IN AFIB RATE CONTROLLED. WILL CONTINUE TO ASSESS.
--- NOTE | 2018-03-13 05:55 | NUR ---
CPT DONE TO POSTERIOR LUNG EATON. LOOSE COUGH. TOLERATED WELL.
--- NOTE | 2018-03-13 06:11 | NUR ---
CHEST PT COMPLETE AT THIS TIME. PLACED BACK ON 2L VIA NC. BP/HR REMAINS STABLE. NO DISTRESS.
--- NOTE | 2018-03-13 07:40 | NUR ---
PT ASLEEP AT THIS TIME. PT AWOKEN EASILY WITH VERBAL STIMULI. ASSESMENT COMPLETED AT THIS TIME (SEE INTERVENTIONS). LUNG SOUNDS CORSE WITH DIMINISHED BASES. HR IRREGULAR TELEMETRY READING 98 ON THE MONITOR. BS ACTIVE. +2 EDEMA NOTED TO BILATERAL EXTREMITIES. PT AGREES TO SIT ON THE SIDE OF THE BED THIS MORNING. BUT DOES NOT WANT TO GET IN THE CHAIR. VOICING NO COMPLAINTS AT THIS TIME. WILL CONTINUE TO MONITOR.
--- NOTE | 2018-03-13 09:30 | NUR ---
PT RESTING QUIETLY IN BED. NO S/S OF DISTRESS. WILL CONTINUE TO MONITOR.
--- NOTE | 2018-03-13 11:21 | NUR ---
PT RESTING QUIETLY. O2 AT 75%. PATIENT REPOSITIONED AND O2 SATS IMPROVED TO 94. PT WOULD JUST LIKE TO NAP. #20 LFA INFUSING WELL. CALL MIRAMONTES IN REACH. NEEDS MET
--- NOTE | 2018-03-13 12:32 | NUR ---
tx giving late due to therapist evelyn unavailable
--- NOTE | 2018-03-13 13:47 | NUR ---
PT RESTING CONTINUES TO REST QUIETLY IN BED. NO S/S OF DISTRESS.
--- NOTE | 2018-03-13 15:30 | NUR ---
PT CONTINUES TO REST QUIETLY IN BED. CONTINUES TO HAVE LOOSE WET NON PRODUCTIVE COUGH. SATS AT 86% ON 2L. ENCOURAGED PAT TO ATTEMPT TO EXPECTORATE IF ABLE.
--- NOTE | 2018-03-13 16:56 | NUR ---
REMAINS RESTING IN BED. CONTINUES TO DECLINE TO REPOSITION AND GET OOB TO CHAIR. CALL MIRAMONTES WITH IN REACH. ENCOURAGED TO CALL IF NEEDS ANYTHING.
--- NOTE | 2018-03-13 18:26 | NUR ---
PT TOLERATED PM MEAL. REQUESTING TO STAND UP AND BRUSH TEETH NEXT SHIFT. REMAINS SITTING ON EDGE OF BED. REMAINS SOB WITH MINIMAL EXERTION.
--- NOTE | 2018-03-13 19:30 | NUR ---
PT SITTING UP IN BED. PT IS ALERT AND ORIENTED X3. SHIFT ASSESSMENT COMPLETED AT THIS TIME. IV PATENT X1. PLAN OF CARE REVIEWED WITH PATIENT. CALL LIGHT IN REACH. WILL CONTINUE TO MONITOR.
--- NOTE | 2018-03-13 21:16 | NUR ---
PT MEDICATED WITH EVENING MEDS PER AUG. PT REPOSITIONED IN BED FOR COMFORT.LAB INTO [facility]. CALL LIGHT IN REACH. WILL CONTINUE TO MONITOR.
--- NOTE | 2018-03-13 22:21 | NUR ---
pt resting in bed watching tv. resp are even and unlabored. no distress noted. call light in reach. will continue to monitor.
--- NOTE | 2018-03-13 23:31 | NUR ---
PT REQUESTED A SLEEPING PILL AT THIS TIME. MEDICATION PROVIDED PER AUG. CALL LIGHT INN REACH. WILL CONTINUE TO MONITOR.
[2018-03-14] VITALS (12 sets, daily range): BP systolic 101–137; BP diastolic 66–77
--- NOTE | 2018-03-14 00:34 | NUR ---
O2 SATS DROPPED TO 70%, RT INTO ROOM TO PLACE PT ON VENTI MASK
--- NOTE | 2018-03-14 02:05 | NUR ---
PT RESTING IN BED WITH EYES CLOSED. RESP ARE EVEN AND UNLABORED. NO DISTRESS NOTED. CALL LIGHT IN REACH. WILL CONTINUE TO MONITOR.
--- NOTE | 2018-03-14 04:21 | NUR ---
PT RESTING IN BED WITH EYES CLOSED. RESP ARE EVEN AND UNLABORED. NO DISTRESS NOTED. CALL LIGHT IN REACH. WILL CONTINUE TO MONITOR,
--- NOTE | 2018-03-14 06:17 | NUR ---
RT WAS INTO PERFORM CPT. PT TOLERATED WELL. PT OFF OF VENTI MASK WHILE AWAKE. CALL LIGHT IN REACH. WILL CONTINUE TO MONTIOR.
--- NOTE | 2018-03-14 07:30 | NUR ---
PT LAYING IN BED IN SUPINE POSITION; PT ALERT ORIENT X3; ASSESSMENT COMPLETED AT THIS TIME. NC 2L IN PLACE, NO DISTRESS NOTED; #20 LAC, IV FLUIDS 20ML/HR INFUSING WELL; IV SITE APPEARS HEALTHY; BARNES PATENT, NO KINKS, DRAINING RAUL, CLEAR URINE; PT EDUCATED ON USE OF IS, PT VERBALIZED UNDERSTANDING AND DEMONISTRATE USE. BED IN LOW LOCKED POSITON; ASSISTED PT EDGE OF BED FOR BREAKFAST; CALL LIGHT IN REACH, WILL CONTINUE TO MONITOR.
--- NOTE | 2018-03-14 10:15 | NUR ---
AND BENITA RUVALCABA AT TO DISCUSS POC
--- NOTE | 2018-03-14 11:10 | NUR ---
PT ASSISTED TO SIDE OF THE BED TO GET WASHED UP. CAREER TECHNOLOGY TEACHER HELPED PT WASHED BACK AND ASSISTED PT WITH BARNES CARE AND ALSO WASHED PTS LEGS FOR HIM. PT VERY APPRECIATIVE DURING THE BATH. PT WASHED HIS FACE AND STOMACH, AND HIS BOTTOM. PT WAS THEN TOOK DOWN STAIRS FOR TEST WITH NURSE. CAREER TECHNOLOGY TEACHER CHANGED LINENS WHILE PT LEFT. WHEN PT RETURNED CAREER TECHNOLOGY TEACHER PLACED LOTIONED ON PT BACK. CAREER TECHNOLOGY TEACHER ALSO USED DEODORANT ON PT. CAREER TECHNOLOGY TEACHER THEN PLACED HEART MONITOR BACK ON PT. PT KEPT THANKING STAFF FOR A CLEAN BED AND A WARM BATH. PT ALSO COMBED HIS HAIR BY USING MIRROR IN THE TABLE. PT WAS THEN PLACED IN CHAIR TO AWAIT FOR LUNCH. CALL MIRAMONTES IN REACH. NO COMPLAINTS AT THIS TIME WERE MENTIONED.
--- NOTE | 2018-03-14 11:16 | NUR ---
[employer]IC[employer] PROFESSOR AT BS TO ASSIST PT WITH A BATH. NO DISTRESS NOTED, REMAIN AFIB ON MONITOR.
--- NOTE | 2018-03-14 13:38 | NUR ---
PT ASLEEP, SITTING UP IN RECLINER, NO DISTRESS NOTED; IV INFUSING WELL; BARNES PATENT; NO SS OF DISTRESS NOTED; WILL CONTINUE TO MONITOR.
--- NOTE | 2018-03-14 14:40 | NUR ---
PT CONTINUES SITTING UP IN RECLINER, LEGS ELEVATED; MEDICATED (HUNG) CIPRO, ELEVATED LEGS; FRESH WATER GIVEN; REMAINS AFIB ON MONITOR; CALL LIGHT IN REACH. WILL CONTINUE TO MONITOR.
--- NOTE | 2018-03-14 15:51 | NUR ---
PT CONTINUES TO REST IN RECLINER WITH EYES CLOSED, EAISLY AROUSE; 02 REMAINS STABLE 92/94% RANGE ON N/C @ 2L; NO S/S OF DISTRESS NOTED. WILL CONTINUE TO MONITOR.
--- NOTE | 2018-03-14 17:00 | NUR ---
ASSISTED PT BACK TO BED; BARNES EMPTIED 450CC CLEAR, RAUL URINE; TWO ATTEMPTS FOR NEW IV SITE TO LA WITHOUT SUCCESS THUS CAUSE SOME PURPLISH DISCOLORATION TO LEFT HAND, PRESSURE AND COBAN APPLIED TO SITE; NEW IV SITE STARTED #22 RIGHT HAND, INFUSING WELL; IV TO LFA REMOVED NO REDNESS OR EDEMA NOTED TO PREVIOUS SITE. WILL CONTINUE TO MONITOR.
--- NOTE | 2018-03-14 17:29 | NUR ---
received call from Dr Quijano; pt's are stable at this time; Dr Quijano to see pt in am
--- NOTE | 2018-03-14 17:50 | NUR ---
PT SITTING UP EDGE OF BED EATING SUPPER; IV INFUSING WELL; NO S/S DISTRESS NOTED. WILL CONTINUE TO MONITOR.
--- NOTE | 2018-03-14 19:00 | NUR ---
PT RESTING IN BED. PT IS ALERT AND ORIENTED X3. SHIFT ASSESSMENT COMPLETED. IV PATENET X1. PLAN OF CARE REVIEWED. PT VERBALIZED UNDERSTANDING. CALL LIGHT IN REACH. WILL CONTINUE TO MONITOR.
--- NOTE | 2018-03-14 19:30 | NUR ---
VISITOR INTO SEE PATIENT
--- NOTE | 2018-03-14 20:05 | NUR ---
BUMEX GIVEN PER MAR AND PER ORDERS.
--- NOTE | 2018-03-14 21:30 | NUR ---
PT RESTING IN BED READING A BOOK. PT MEDICATED PER AUG. PLACED PT ON VENTI MASK DUE TO MOUTH BREATHING WHILE SLEEPING AND O2 SATS IN THE 80S. CALL LIGHT IN REACH. WILL CONTINUE TO MONITOR
--- NOTE | 2018-03-14 22:00 | NUR ---
PT RESTING IN BED WITH EYES CLOSED. RESP ARE EVEN AND UNLABORED. NO DISTRESS NOTED. CALL LIGHT IN REACH. WILL CONTINUE TO MONITOR.
--- NOTE | 2018-03-14 23:27 | NUR ---
PT RESTING IN BED WITH EYES CLOSED. RESP ARE EVEN AND UNLABORED. NO DISTRESS NOTED. CALL LIGHT IN REACH. WILL CONTINUE TO MONITOR.
[2018-03-15] VITALS (10 sets, daily range): BP systolic 95–134; BP diastolic 56–85
--- NOTE | 2018-03-15 02:15 | NUR ---
PT RESTING IN BED WITH EYES CLOSED. RESP ARE EVEN AND UNLABORED. NO DISTRESS NOTED AT THIS TIME. CALL LIGHT IN REACH. WILL CONTINUE TO MONITOR
--- NOTE | 2018-03-15 03:59 | NUR ---
PT RESTING IN BED WITH EYES CLOSED. RESP ARE EVEN AND UNLABORED. NO DISTRESS NOTED. CALL LIGHT IN REACH. IWLL CONTINUE TO MONITOR
[2018-03-15 05:13] LABS: HEMATOCRIT 46.8 % (39.0-50.0); HEMOGLOBIN 15.4 g/dl (14.0-18.0); IMMATURE GRANULOCYTES 0.8 % (0.0-5.0); MEAN CELL VOLUME 102.2 fL CALC (80.0-100.0); MEAN CORPUSCULAR HGB 33.6 pG CALC (26.0-32.0); MEAN CORPUSCULAR HGB CONC 32.9 g/L CALC (32.0-36.0); NEUT# 12.6 thou/uL (1.82-7.42); RED BLOOD COUNT 4.58 mill/uL (4.70-6.10); RED CELL DISTRI WIDTH 14.2 % (11.5-15.5)
[2018-03-15 05:29] LABS: ALBUMIN 2.4 g/dL (3.2-5.0); ALKALINE PHOSPHATASE 37 u/l (38-126); BILIRUBIN, TOTAL 0.6 mg/dL (0.0-1.4); BUN 31 mg/dL (8-23); BUN/CREATININE RATIO 58 (12-20 (CALC)); CHLORIDE 90 mmol/l (95-108); CREATININE 0.5 mg/dL (0.7-1.3); GFR > 60 ML/MIN (>=60 (CALC)); GFR FOR AFR.AMER. > 60 ML/MIN (>=60 (CALC)); MAGNESIUM 1.7 mg/dL (1.6-2.3); POTASSIUM 3.9 mmol/l (3.5-5.1); SGOT/AST 13 u/l (19-48); SODIUM 137 mmol/l (137-146); TOTAL PROTEIN 4.6 g/dL (6.3-8.2)
[2018-03-15 05:35] LABS: ANION GAP 7 (6-22 (CALC))
[2018-03-15 05:36] LABS: CARBON DIOXIDE 44 mmol/l (22-30)
--- NOTE | 2018-03-15 05:45 | NUR ---
DRAKE IN LAB CALLED WITH CRITICAL CO2 OF 44. RT INTO COMPLETE ABG. DR TERAN NOTIFIED OF RESULTS.
--- NOTE | 2018-03-15 06:53 | NUR ---
RECVD REPORT FROM GALI ALEJO AT START OF SHIFT.
--- NOTE | 2018-03-15 07:44 | NUR ---
PT LAYING IN BED. BREATHING IS EVEN/UNLABORED, WHEEZING THROUGH ALL LOBES, DIMINISHED LUNG SOUNDS. +2 EDEMA TO BILATERAL LOWER EXTREMETIES. WEAK PEDAL PULSE, STRONG RADIAL PULSE. AFIB ON MONITOR. ABD SOFT/NONTENDER, ACTIVE BS. PT STATES HE HAD A BM 2 DAYS AGO. [place]. BREATHING LABORED WITH EXERTION. PT DENIES PAIN. DENIES SOB. DENIES N/V. PT STATES HE IS "FEELING GOOD". SKIN COOL/DRY
--- NOTE | 2018-03-15 08:30 | NUR ---
DR CAMPBELL @BEDSIDE, ASSESSING PT, DISCUSSING POC.
--- NOTE | 2018-03-15 09:12 | NUR ---
PT ON PERSONAL CELL PHONE, NO DIFFICULTY CONVERSING AND BREATHING.
--- NOTE | 2018-03-15 09:49 | NUR ---
PT UPDATED ON POC. ANSWERED QUESTIONS/ ADDRESSED CONCERNS.
--- NOTE | 2018-03-15 10:04 | NUR ---
dr kennedy @bedside. request ivf kvo stopped, cath quiros removed, will change water pill, monitor output.
--- NOTE | 2018-03-15 10:36 | NUR ---
CATH BARNES REMOVED. 350CC YELLOW OUTPUT. DR MUNIZ @BEDSIDE INFORMING PT THAT HE NEEDS 2 MORE DAYS OF IV ABX BEFORE HE CAN BE DC ON ORAL ABX. ANSWERED PTS QUESTIONS/CONCERNS.
--- NOTE | 2018-03-15 10:53 | NUR ---
DR MUNIZ & DR CAMPBELL CANCELED ECHO ON PT.
--- NOTE | 2018-03-15 12:10 | NUR ---
PT SITTING ON THE SIDE OF THE BED EATING LUNCH. NO S/S OF DISTRESS AT THIS TIME.
--- NOTE | 2018-03-15 13:10 | NUR ---
RT @BEDSIDE FOR BREATHING TREATMENT.
--- NOTE | 2018-03-15 13:17 | NUR ---
PT APPEARS TO BE SLEEPING. NO S/S OF DISTRESS AT THIS TIME. WILL CONTINUE TO MONITOR.
--- NOTE | 2018-03-15 15:11 | NUR ---
PT APPEARS TO BE SLEEPING IN BED. BREATHING IS EVEN/UNLABORED. CALLBELL W/IN REACH. WILL CONTINUE TO MONITOR.
--- NOTE | 2018-03-15 17:01 | NUR ---
CALLED [employer] TO BRING PT MAGAZINES. PT STATES HES VERY HAPPY WITH THE NEW MAGAZINES.
--- NOTE | 2018-03-15 17:07 | NUR ---
RT @BEDSIDE FOR BREATHING TREATMENT
--- NOTE | 2018-03-15 17:50 | NUR ---
PT SITTING ON SIDE OF BED, EATING DINNER.
--- NOTE | 2018-03-15 18:45 | NUR ---
REPORT FROM Keanu HOPPER RN. ASSUMED PT. CARE.
--- NOTE | 2018-03-15 20:20 | NUR ---
PT. FOUND AWAKE, ALERT, ORIENTED X 3. SKIN WARM AND DRY. RESPS SHALLOW, MILDLY LABORED, TACHYPENIC. PT. IN AFIB RATE IN THE 110-120'S. CIPRO INFUSING PER PHYSICIAN ORDERS. NO REACTIONS NOTED. MILDLY IMPROVED LUNG SOUNDS TO UPPERS BILATERALLY, REMAINS SLIGHTLY DIMINSHED WITH FAINT COARSENESS, DIMINISHED AND COARSE TO BASES BILAT. BOWEL SOUNDS PRESENT X 4. PT. STATES HE HAS URINARY FREQUENCY AND URGENCY. APPROX 100 CC PALE YELLOW URINE NOTED TO URINAL. 2+ EDEMA NOTED. PULSES INTACT.
--- NOTE | 2018-03-15 21:10 | NUR ---
BLADDER SCAN PERFORMED. PT. NOTED TO HAVE GREATER THAN 999 CC IN BLADDER ACCORDING TO SCANNER. MD MADE AWARE, NEW ORDERS RECEIVED.
--- NOTE | 2018-03-15 22:10 | NUR ---
RT AT BEDSIDE FOR NEB TREATMENT. PT. TOLERATING WELL. WILL CONTINUE TO ASSESS. APPROX 1000 CC PALE YELLOW URINE OUT AT THIS TIME.
--- NOTE | 2018-03-15 23:41 | NUR ---
PT. RESTING IN BED IN NO DISTRESS. MEDICATED WITH SLEEPING PILL PER HIS REQUEST. SKIN REMAINS WARM AND DRY. AFEBRILE. PT. SITTING IN BED READING A MAGAZINE. WILL CONTINUE TO MONITOR.
[2018-03-16] VITALS (12 sets, daily range): BP systolic 94–108; BP diastolic 55–77
--- NOTE | 2018-03-16 01:20 | NUR ---
PT. RESTING IN BED WITH EYES CLOSED. RESPS EVEN AND UNLABORED. NO DISTRESS. REMAINS IN A-FIB RATE CONTROLLED IN THE 80-100 RANGE. CALL LIGHT REMAINS WITHIN REACH. WILL CONTINUE TO ASSESS.
--- NOTE | 2018-03-16 03:15 | NUR ---
PT. CONTINUES TO REST WITH EYES CLOSED AND UNLABORED RESPS. REMAIN SHALLOW. BP/HR STABLE. SPO2 REMAINS STABLE ON 28% VENTI-MASK. 93% AT THIS TIME. CALL LIGHT REMAINS WITHIN REACH. WILL CONTINUE TO ASSESS.
--- NOTE | 2018-03-16 05:05 | NUR ---
PT. EASILY AROUSABLE TO VERBAL STIMULI. REMAINS ORIENTED X 3. SPO2 REMAINS STABLE ON 28% VENTI-MASK. LAB AT BEDSIDE AT THIS TIME TO DRAW PATIENT. DENIES COMPLAINTS OR NEEDS AT THIS TIME. VSS.
--- NOTE | 2018-03-16 05:25 | NUR ---
PATIENT REFUSED CPT.
[2018-03-16 05:42] LABS: ALBUMIN 2.3 g/dL (3.2-5.0); ALKALINE PHOSPHATASE 36 u/l (38-126); BILIRUBIN, TOTAL 0.8 mg/dL (0.0-1.4); BUN 26 mg/dL (8-23); BUN/CREATININE RATIO 51 (12-20 (CALC)); CHLORIDE 87 mmol/l (95-108); CREATININE 0.5 mg/dL (0.7-1.3); GFR > 60 ML/MIN (>=60 (CALC)); GFR FOR AFR.AMER. > 60 ML/MIN (>=60 (CALC)); MAGNESIUM 1.7 mg/dL (1.6-2.3); POTASSIUM 3.7 mmol/l (3.5-5.1); SGOT/AST 12 u/l (19-48); SODIUM 136 mmol/l (137-146); TOTAL PROTEIN 4.5 g/dL (6.3-8.2)
[2018-03-16 05:43] LABS: HEMATOCRIT 48.1 % (39.0-50.0); HEMOGLOBIN 15.8 g/dl (14.0-18.0); IMMATURE GRANULOCYTES 0.8 % (0.0-5.0); MEAN CELL VOLUME 101.3 fL CALC (80.0-100.0); MEAN CORPUSCULAR HGB 33.3 pG CALC (26.0-32.0); MEAN CORPUSCULAR HGB CONC 32.8 g/L CALC (32.0-36.0); NEUT# 10.53 thou/uL (1.82-7.42); RED BLOOD COUNT 4.75 mill/uL (4.70-6.10); RED CELL DISTRI WIDTH 13.8 % (11.5-15.5)
[2018-03-16 05:49] LABS: ANION GAP 6 (6-22 (CALC))
[2018-03-16 05:57] LABS: CARBON DIOXIDE 47 mmol/l (22-30)
--- NOTE | 2018-03-16 06:18 | NUR ---
PT. SITTING UP AT BEDSIDE, ASSISTING PATIENT TO SHAVE AT THIS TIME. PROVIDED WITH BASIN, HOT WATER, HOT TOWEL. PT. WITH MODERATED DYSPNEA AAFTER HAVING TO REMOVE NASAL CANNULA TO SHAVE UPPER LIP. REMAINS AFIB-RATE IN THE 100-130'S. WILL CONTINUE TO CLOSELY MONITOR.
--- NOTE | 2018-03-16 07:49 | NUR ---
PT WAS LAYING IN BED, RESTING. PT NOW SITTING ON SIDE OF BED, EATING BREAKFAST. PT CONCERNED THAT HE "HASNT POOPED IN A COUPLE DAYS". PT STATES HE "HAD A HARD TIME STANDING ON THE SCALE THIS MORNING, HE WAS REALLY WEAK". SAW A SMALL JEFFERY ON THE FLOOR IN ROOM BY BED. BREATHING IS EVEN/UNLABORED, WITH COARSE CRACKLES IN ALL LOBES. STRONG RADIAL PULSES, WEAK PEDAL PULSES. +2 EDEMA TO BILATERAL LOWER LEGS/FEET. ABD SOFT/NONTENDER, ACTIVE BS. PT A&Ox4. EYES PERRLA. SKIN WARM/DRY.
--- NOTE | 2018-03-16 08:34 | NUR ---
VERIFIED PTS DIETARY PREFERENCES FOR THE DAY.
--- NOTE | 2018-03-16 09:14 | NUR ---
RT @ BEDSIDE FOR BREATHING TREATMENT. PT GIVEN MORNING MEDS AND EXPLAINED PURPOSE. NO QUESTIONS ASKED.
--- NOTE | 2018-03-16 11:06 | NUR ---
DR MUNIZ @BEDSIDE WITH PT, ASSESSING & DISCUSSING TEST RESULTS & POC. SPOKE WITH PT ABOUT ALTERNATE DC OPTIONS SUCH AN SHELTER/SNF OR HOSPICE. PT REFUSING TO DISCUSS ANYTHING EXCEPT REHAB. STATING THAT A SHELTER/SNF IS A "THROW AWAY". PT VERBALLY STATED/BELEIVES THAT HE WILL SPEND 2 WEEKS AT REHAB AND BE OK TO GO HOME. DR MUNIZ ANSWERED QUESTIONS AND CONCERNS BUT PT NOT OPEN TO DISCUSS OTHER OPTIONS FOR DC. SHARED PTS CONCERNS WITH [facility], CASE MANAGEMENT. [facility] WILL CONTACT PROPER CHANNELS RE: BED BUGS/ROACHES.
--- NOTE | 2018-03-16 11:10 | NUR ---
ORDER PLACED FOR P.T. EVAL
--- NOTE | 2018-03-16 11:34 | NUR ---
LUNCH TRAY PLACED ON BEDSIDE TABLE. PT STATES HE WILL SIT UP ON SIDE OF BED TO EAT. PT GIVEN MAYONAISE, MUSTARD, KETCHUP UPON REQUEST.
--- NOTE | 2018-03-16 12:27 | NUR ---
SHERRON, CASE MANAGEMENT, @BEDSIDE.
--- NOTE | 2018-03-16 13:10 | NUR ---
ANSWERED PTS QUESTIONS/CONCERNS ABOUT [facility]OSPITAL CARE. PT REFUSING TO LISTEN OR ACKNOWLEDGE ANY INFORMATION GIVEN FROM THIS RN, DR MUNIZ, & CASE MANAGEMENT. PT VERY UPSET THAT WE "WONT LET HIS FRIEND DAVID COME AND TAKE HIM OUT FOR BURGERS AND SOME FUN". PT STATES HIS APT BUILDING IS UNDER NEW MANAGEMENT AND WAS ALREAY CLEANED, AND MANAGEMENT WILL CLEAN IT AGAIN WHEN HE CALLS THEM. PT UNABLE TO GIVE DETAILS ABOUT NEW MANAGEMENT. PRINTED OUT GENERALIZED INFORMATION ABOUT SNF, PENITENTIARY, REHAB, & HOSPICE FOR PT.
--- NOTE | 2018-03-16 13:49 | NUR ---
PT LAYING IN BED, READING MATERIAL ABOUT SNF/[facility]/REHAB/HOSPICE PRINTED OFF THE INTERNET. CASE MANAGEMENT AWARE.
--- NOTE | 2018-03-16 14:24 | NUR ---
PHYSICAL THERAPY @BEDSIDE WITH PT.
--- NOTE | 2018-03-16 14:39 | NUR ---
PT UP TO RECLINER WITH P.T. ASSIST. PT REFUSED BATH. BRUSHED OWN TEETH. BED LINENS CHANGED.
--- NOTE | 2018-03-16 15:43 | NUR ---
CALVIN, CASE MANAGEMENT, @BEDSIDE WITH PT DISCUSSING DC OPTIONS.
--- NOTE | 2018-03-16 17:00 | NUR ---
PT STATES HE'S READY TO GET BACK INTO BED. P.T. CALLED. THEY STATED ICU COULD ASSIST PT BACK TO BED.
--- NOTE | 2018-03-16 17:09 | NUR ---
PT USED WALKER TO TRANSFER BACK TO BED FROM STRETCHER. PT UNABLE TO LIFT TO STANDING POSITION BY HIMSELF. PT UNSTEADY ON FEET. PTS 02 WAS 67% ON BREATHING TREATMENT DURING TRANSFER. CALLBELL W/IN REACH. MAGAZINES ON BED PER PTS REQUEST.
--- NOTE | 2018-03-16 17:30 | NUR ---
PT SITTING ON SIDE OF BED, EATING DINNER.
--- NOTE | 2018-03-16 18:17 | NUR ---
PT LAYING BACK IN BED, READING IN BED. NO S/S OF DISTRESS AT THIS TIME.
--- NOTE | 2018-03-16 18:45 | NUR ---
REPORT FROM Keanu HOPPER RN. ASSUMED PT. CARE.
--- NOTE | 2018-03-16 19:25 | NUR ---
PT. FOUND AWAKE, ALERT, ORIENTED X 3. SKIN WARM AND DRY. [place]. RESPS EVEN, SHALLOW, LABORED ON EXERTION. AFIB BETWEEN 80-120. LUNGS SLIGHTLY DIMINISHED THROUGHOUT, OTHERWISE CLEAR. REMAINS WITH MOIST HARSH COUGH WITH LITTLE TO NO SPUTUM PRODUCTION. DENIES PAIN. REPORTS NO BM X 3 DAY. MEDICATED WITH MOM EARLIER, WILL CONTINUE TO ASSESS. 3+ LOWER EXT EDEMA NOTED. WILL CONTINUE TO MONITOR.
--- NOTE | 2018-03-16 21:27 | NUR ---
FRIEND OUT FROM BEDSIDE AT THIS TIME. PT. MEDICATED PER PHYSICIAN ORDERS. REMAINS WITH MOIST, HARSH COUGH WITH MINIMAL SPUTUM PRODUCTION.
--- NOTE | 2018-03-16 22:40 | NUR ---
NEB TREATMENT COMPLETE AT THIS TIME. PT. REMAINS STABLE AT THIS TIME. VSS. PT. REMAINS AFIB IN THE 70-90'S AT THIS TIME. BP/SPO2 STABLE. SPO2 IS 93% ON 2L VIA NC. CALL LIGHT REMAINS WITHIN REACH. WILL CONTINUE TO ASSESS.
[2018-03-17] VITALS (8 sets, daily range): BP systolic 90–112; BP diastolic 60–79
--- NOTE | 2018-03-17 00:58 | NUR ---
PT. RESTING WITH INTERMITTENT TALKING IN HIS SLEEP. REMAINS RESTFUL WITH EYES CLOSED OTHERWISE. RESPS REMAIN EVEN AND UNLABORED. SPO2 IS 94% ON 2L VIA NC. REMAINS IN NO DISTRESS.
--- NOTE | 2018-03-17 02:11 | NUR ---
PT. REMAINS RESTING WITH EYES CLOSED IN NO DISTRESS. RESPS REMAIN EVEN AND UNLABORED. VSS. BP/HR STABLE. CALL LIGHT REMAINS WITHIN REACH. WILL CONTINUE TO ASSESS.
--- NOTE | 2018-03-17 04:05 | NUR ---
PT. RESTING IN BED WITH EYES CLOSED. SHALLOW, EVEN RESPS. VSS. CALL LIGHT REMAINS WITHIN REACH. WILL CONTINUE TO ASSESS.
--- NOTE | 2018-03-17 05:55 | NUR ---
PT. EASILY AROUSABLE TO LIGHT VERBAL STIMULI. ORIENTED X 3. REMAINS STABLE. RESPS EVEN, SHALLOW, UNLABORED AT THIS TIME. CALL LIGHT REMAINS WITHIN REACH.
--- NOTE | 2018-03-17 06:19 | NUR ---
NEB TREATMENT IN PROGRESS. PT. MEDICATED WITH SOLUMEDROL PER PHYSICIAN ORDERS. CIPRO INFUSING AT THIS TIME. NO REACTIONS NOTED.
--- NOTE | 2018-03-17 06:25 | NUR ---
LAB AT BEDSIDE AT THIS TIME TO DRAW PT. PT. REMOVED FROM NEB TREATMENT BY RT AT THIS TIME. WILL CONTINUE TO MONITOR. VSS.
[2018-03-17 06:37] LABS: HEMOGLOBIN 14.7 g/dl (14.0-18.0); IMMATURE GRANULOCYTES 0.9 % (0.0-5.0); MEAN CORPUSCULAR HGB 31.3 pG CALC (26.0-32.0); MEAN CORPUSCULAR HGB CONC 31.3 g/L CALC (32.0-36.0); NEUT# 9.43 thou/uL (1.82-7.42); RED BLOOD COUNT 4.7 mill/uL (4.70-6.10); RED CELL DISTRI WIDTH 13.9 % (11.5-15.5)
[2018-03-17 06:56] LABS: ALBUMIN 2.1 g/dL (3.2-5.0); ALKALINE PHOSPHATASE 35 u/l (38-126); BILIRUBIN, TOTAL 0.8 mg/dL (0.0-1.4); BUN 24 mg/dL (8-23); BUN/CREATININE RATIO 52 (12-20 (CALC)); CHLORIDE 88 mmol/l (95-108); CREATININE 0.5 mg/dL (0.7-1.3); GFR > 60 ML/MIN (>=60 (CALC)); GFR FOR AFR.AMER. > 60 ML/MIN (>=60 (CALC)); MAGNESIUM 1.8 mg/dL (1.6-2.3); POTASSIUM 3.9 mmol/l (3.5-5.1); SGOT/AST 13 u/l (19-48); SODIUM 135 mmol/l (137-146); TOTAL PROTEIN 4.1 g/dL (6.3-8.2)
[2018-03-17 07:02] LABS: ANION GAP 4 (6-22 (CALC))
--- NOTE | 2018-03-17 07:03 | NUR ---
REPORT RECVD FROM GALI HENDERSON @ START OF SHIFT. PT APPEARS TO BE SLEEPING IN BED. NO S/S OF DISTRESS. O2 97% ON RA.
[2018-03-17 07:06] LABS: CARBON DIOXIDE 47 mmol/l (22-30)
--- NOTE | 2018-03-17 07:33 | NUR ---
PT SITTING UP ON SIDE OF BED, EATING BREAKFAST. NO C/O THIS AM.
--- NOTE | 2018-03-17 08:35 | NUR ---
HOUSEKEEPING IN ROOM WITH PT.
--- NOTE | 2018-03-17 09:04 | NUR ---
RT @BEDSIDE FOR BREATHING TREATMENT. PT MEDICATED & GIVEN MILK OF MAGNESIA FOR CONSTIPATION. PT DENIES S/S OF CONSTIPATION BUT HAS NOT HAD A BM x4 DAYS.
--- NOTE | 2018-03-17 09:13 | NUR ---
CALVIN, CASE MANAGEMENT, @BEDSIDE DISCUSSING PLACEMENT AT [facility] IN [place].
--- NOTE | 2018-03-17 10:35 | NUR ---
Attempting treatment this am, nursing reported he is being d/ashley today and they wanted treatment held.
--- NOTE | 2018-03-17 10:35 | NUR ---
ROBERTA FROM [facility] @BEDSIDE TO GIVE PT INFORMATION ABOUT REHAB & EVALUATE PT.
--- NOTE | 2018-03-17 11:24 | NUR ---
FRIEND, DAVID, @BEDSIDE. CLOTHES BROUGHT STRAIGHT FROM THE LAUNDRY PLACED IN A BELONGINGS BAG AND PLACED ON POLE OUTSIDE OF ROOM UNTIL PT IS READY FOR DC.
[2018-03-17] MEDS ORDERED: BUMETANIDE1 MG PO (11:53)
[2018-03-17] MEDS ORDERED: CIPROFLOXACN500 MG PO (11:57)
--- NOTE | 2018-03-17 12:45 | NUR ---
CASE MAGDALENA @BEDSIDE WITH PT & MARISA HERNANDEZ. [facility] ETA 1415 TODAY
--- NOTE | 2018-03-17 13:19 | NUR ---
RT @BEDSIDE FOR BREATHING TREATMENT
--- NOTE | 2018-03-17 13:53 | NUR ---
IV DISCONTINUED, TIP INTACT. PRESSURE DRESSING APPLIED. PT & FRIEND EDUCATED ON DC ORDERS, INCLUDING START & STOP MEDICATIONS. ANSWERED QUESTIONS, NO NEW CONCERNS.
--- NOTE | 2018-03-17 14:30 | NUR ---
REPORT GIVEN TO RAUL AT [phone], [facility].
--- NOTE | 2018-03-17 14:42 | NUR ---
PT LEFT ICU WITH [facility] IN STABLE CONDITION BY STRETCHER ON WITH MOLLY. DAVID WAITED IN ICU FOR MARIE TO HELP TAKE PTS BELONGINGS TO CAR. BELONGINGS SEALED IN BAGS.
== END 2018-03-17 14:42 | DRG 177 ==
LOC: ED 10:46 → ED-I 11:18 → ED 14:41 → MS2 14:42 → ICU 03-09 10:25
PROVIDERS: Family Medicine; Internal Medicine Nephrology; Nurse Practitioner Family; ADMIT Internal Medicine; ATTEND Internal Medicine
PROC: 5A09357 Assistance with Respiratory Ventilation, Less than 24 Consecutive Hours, Continuous Positive Airway Pressure (ICD-10-PCS; principal; 2018-03-09)
PROC: 0T9B70Z Drainage of Bladder with Drainage Device, Via Natural or Artificial Opening (ICD-10-PCS; 2018-03-12)
PROC: 0T9B70Z Drainage of Bladder with Drainage Device, Via Natural or Artificial Opening (ICD-10-PCS; 2018-03-15)
DX: J15.0 Pneumonia due to Klebsiella pneumoniae (principal); J96.22 Acute and chronic respiratory failure with hypercapnia; J96.21 Acute and chronic respiratory failure with hypoxia; I50.23 Acute on chronic systolic (congestive) heart failure; J44.1 Chronic obstructive pulmonary disease with (acute) exacerbation; J44.0 Chronic obstructive pulmonary disease with (acute) lower respiratory infection; D68.2 Hereditary deficiency of other clotting factors; I42.8 Other cardiomyopathies; E87.2 Acidosis; N13.8 Other obstructive and reflux uropathy; N40.1 Benign prostatic hyperplasia with lower urinary tract symptoms; R33.8 Other retention of urine; Z99.81 Dependence on supplemental oxygen; F17.210 Nicotine dependence, cigarettes, uncomplicated; E86.0 Dehydration; I48.2 Chronic atrial fibrillation; M62.50 Muscle wasting and atrophy, not elsewhere classified, unspecified site; T14.8XXA Other injury of unspecified body region, initial encounter; W57.XXXA Bitten or stung by nonvenomous insect and other nonvenomous arthropods, initial encounter; Y92.009 Unspecified place in unspecified non-institutional (private) residence as the place of occurrence of the external cause; Z91.19 Patient's noncompliance with other medical treatment and regimen
CPT/HCPCS: J3370

== ENCOUNTER 2018-04-07 14:10 | Emergency (ER) | payer MEDICARE, MEDICAID ==
[~2018-04-07] VITALS: Ht 180.3 cm; Wt 70.0 kg
[~2018-04-07 14:10] MED LIST changes: +AMOXICILLIN/CL875 MG PO; +BUMETANIDE1 MG PO; +CIPROFLOXACN500 MG PO; +KLOR-CON 1010 MEQ PO; +LASIX 20 MG TAB20 MG PO; +SPIRIVA HANDIHALER IN; +TAMSULOSIN HCL0.4 MG PO
[2018-04-07 15:02] VITALS: BP 100/40
== END 2018-04-07 15:19 | disposition home or self-care (01) ==
LOC: ED 14:10
DX: T83.018A Breakdown (mechanical) of other urinary catheter, initial encounter (principal); R33.9 Retention of urine, unspecified; J44.9 Chronic obstructive pulmonary disease, unspecified; D68.2 Hereditary deficiency of other clotting factors; F17.200 Nicotine dependence, unspecified, uncomplicated; Y84.6 Urinary catheterization as the cause of abnormal reaction of the patient, or of later complication, without mention of misadventure at the time of the procedure

== ENCOUNTER 2018-04-08 15:13 | Emergency (ER) | payer MEDICARE | END 2018-04-08 15:45 | disposition left against medical advice (07) | LOC: ED 15:13 → LWOBS 15:44 | DX: Z91.19 Patient's noncompliance with other medical treatment and regimen (principal) ==

== ENCOUNTER 2018-04-10 11:50 | Emergency (ER) | payer MEDICARE, MEDICAID ==
[~2018-04-10] VITALS: Ht 180.3 cm; Wt 59.1 kg
[2018-04-10 12:32] VITALS: BP 97/60
== END 2018-04-10 12:48 | disposition home or self-care (01) ==
LOC: ED 11:50
DX: Z46.6 Encounter for fitting and adjustment of urinary device (principal)

== ENCOUNTER 2018-04-28 23:24 | Emergency (ER) | payer MEDICARE, MEDICAID ==
[~2018-04-28] VITALS: Ht 180.3 cm; Wt 71.4 kg
[2018-04-28] MEDS ORDERED: BACTRIM DS1 TAB PO (23:59)
[2018-04-29 01:08] VITALS: BP 104/72
== END 2018-04-29 01:08 | disposition home or self-care (01) ==
LOC: ED 23:24
PROC: 0H9DXZZ Drainage of Right Lower Arm Skin, External Approach (ICD-10-PCS; principal; 2018-04-28)
DX: L02.413 Cutaneous abscess of right upper limb (principal); L03.113 Cellulitis of right upper limb; J44.9 Chronic obstructive pulmonary disease, unspecified; F17.200 Nicotine dependence, unspecified, uncomplicated; D68.2 Hereditary deficiency of other clotting factors

== ENCOUNTER 2018-05-01 19:52 | Emergency (ER) | payer MEDICARE, MEDICAID ==
[~2018-05-01] VITALS: Ht 180.3 cm; Wt 70.0 kg
[~2018-05-01 19:52] MED LIST changes: +BACTRIM DS1 TAB PO
[2018-05-01 20:20] VITALS: BP 103/61
== END 2018-05-01 20:20 | disposition home or self-care (01) ==
LOC: ED 19:52
DX: Z48.01 Encounter for change or removal of surgical wound dressing (principal)

== ENCOUNTER 2018-05-03 22:00 | Emergency (ER) | payer MEDICARE, MEDICAID ==
[~2018-05-03] VITALS: Ht 180.3 cm; Wt 71.3 kg
[2018-05-03] MEDS ORDERED: CEPHALEXIN500 M1 PO (23:05)
[2018-05-03] MEDS ORDERED: BACTRIM DS1 TAB PO (23:05)
[2018-05-03 23:20] VITALS: BP 103/60
== END 2018-05-03 23:20 | disposition home or self-care (01) ==
LOC: ED 22:00
PROC: 0HDDXZZ Extraction of Right Lower Arm Skin, External Approach (ICD-10-PCS; principal; 2018-05-03)
DX: L02.413 Cutaneous abscess of right upper limb (principal); J44.9 Chronic obstructive pulmonary disease, unspecified; F17.210 Nicotine dependence, cigarettes, uncomplicated; B95.62 Methicillin resistant Staphylococcus aureus infection as the cause of diseases classified elsewhere

== ENCOUNTER 2018-05-06 22:10 | Emergency (ER) | payer MEDICARE, MEDICAID ==
[~2018-05-06] VITALS: Ht 180.3 cm; Wt 71.0 kg
[~2018-05-06 22:10] MED LIST changes: +CEPHALEXIN500 M1 PO
[2018-05-07 01:13] LABS: BILIRUBIN, TOTAL 0.4 mg/dL (0.0-1.4)
[2018-05-07 01:16] LABS: HEMATOCRIT 45.3 % (39.0-50.0); HEMOGLOBIN 15.1 g/dl (14.0-18.0); IMMATURE GRANULOCYTES 1.5 % (0.0-5.0); MEAN CORPUSCULAR HGB 30.9 pG CALC (26.0-32.0); MEAN CORPUSCULAR HGB CONC 33.3 g/L CALC (32.0-36.0); NEUT# 23.18 thou/uL (1.82-7.42); RED BLOOD COUNT 4.88 mill/uL (4.70-6.10); RED CELL DISTRI WIDTH 15.1 % (11.5-15.5)
[2018-05-07 01:18] LABS: ALBUMIN 2.7 g/dL (3.2-5.0); CREATININE 3.1 mg/dL (0.7-1.3); POTASSIUM 5.5 mmol/l (3.5-5.1)
[2018-05-07 01:25] LABS: MEAN CELL VOLUME 92.8 fL CALC (80.0-100.0)
[2018-05-07 03:00] VITALS: BP 94/65
== END 2018-05-07 03:00 | disposition short-term general hospital (02) ==
LOC: ED 22:10 → ED-I 23:40 → ED 05-07 03:00
PROVIDERS: Emergency Medicine
DX: T81.49XA Infection following a procedure, other surgical site, initial encounter (principal); A41.9 Sepsis, unspecified organism; N19 Unspecified kidney failure; D72.829 Elevated white blood cell count, unspecified; J44.1 Chronic obstructive pulmonary disease with (acute) exacerbation; F17.290 Nicotine dependence, other tobacco product, uncomplicated; I48.91 Unspecified atrial fibrillation; R00.0 Tachycardia, unspecified